=== PATIENT | female | born 1940 | race Caucasian/White ===

== ENCOUNTER 2019-07-12 10:05 | Inpatient (IN) | payer MEDICARE, OTHER ==
[~2019-07-12] VITALS: Ht 170.2 cm; Wt 53.6 kg
[~2019-07-12 10:05] MED LIST: CIPRO500 MG PO; HYDROCODONE-APA1 TA3 PO
--- NOTE | 2019-07-12 11:00 | NUR ---
NEW ADMIT TO DOCTOR LEAVITT ON GROUP HOME FROM DR ROCHA'S OFFICE FOR INCREASED CONFUSION, ANXIETY, AGGRESSION, AND NOT EATING. UPON ARRIVAL TO GROUP HOME, PATIENT WAS CALM AND COOPERATIVE WITH ADMISSION ASSESSMENTS. CONSENTS TO TREAT RECEIVED FROM SUSAN EASON, SPOUSE AND GUARDIAN. GUARDIANSHIP PAPERWORK RECEIVED. PATIENT IS A FULL CODE. CODE WORD PROVIDED TO FAMILY. PT HAS VERY SHORT TERM MEMORY. PT VISITING WITH OTHER FEMALE PATIENTS AT THIS TIME.
[2019-07-12] MEDS ORDERED: SEROQUEL50 MG PO (11:27)
[2019-07-12] MEDS ORDERED: ZOLOFT25 MG PO (11:28)
[2019-07-12] MEDS ORDERED: ATIVAN1 MG PO (11:29)
[2019-07-12 13:37] VITALS: BP 133/55; BMI 19.4
[2019-07-12 13:40] LABS: BASOPHILS 0.3 % (0-2); EOSINOPHILS 0.5 % (0-7); HEMATOCRIT 39.6 % (36.0-48.0); HEMOGLOBIN 12.8 g/dL (12-16); LYMPHOCYTES 38.7 % (15-50); MCHC 32.3 g/dL (31.0-37.0); MCV 89.6 fL (80.0-100.0); MONOCYTES 6.3 % (2-11); NEUTROPHILS 54.2 % (40-80); PLATELET COUNT 268 10x3/uL (130-400); RBC 4.42 10x6/uL (4.00-5.40); RDW 13.2 % (11.5-14.5); WBC 5.9 10x3/uL (4.8-10.8)
[2019-07-12 14:08] LABS: ALBUMIN 3.6 g/dL (3.4-5.0); ALKALINE PHOSPHATASE 115 U/L (30-120); ALT (SGPT) 19 U/L (10-68); CALC OSMOLALITY 288 mosm/kg (275-300); CALCIUM 8.6 mg/dL (8.5-10.1); CHLORIDE - SERUM 106 mmol/L (98-107); CHOL - HDL RATIO 2.7 ratio (2.3-4.1); CHOLESTEROL, TOTAL 205 mg/dL (0-200); CREATININE - SERUM 0.7 mg/dL (0.6-1.3); GLUCOSE 83 mg/dL (74-106); HDL CHOLESTEROL 77 mg/dL (32-96); LDL CHOLESTEROL 115 mg/dL (0-100); LDL-HDL RATIO 1.5 ratio (1.5-3.5); POTASSIUM - SERUM 3.6 mmol/L (3.5-5.1); PROTEIN - SERUM 6.7 g/dL (6.4-8.2); SODIUM 145 mmol/L (136-145); THYROID STIMULATING HORMONE 0.74 uIU/mL (0.36-3.74); TRIGLYCERIDE 65 mg/dL (30-200); UREA NITROGEN 15 mg/dL (7-18); eGFR NON AFRICAN AMERICAN 86 mL/min (90-120)
--- NOTE | 2019-07-12 14:59 | NUR ---
PATIENT VERY ANXIOUS. EXIT SEEKING. BANGING ON DOORS TO GET OUT. LOOKING FOR . UNABLE TO REDIRECT AND BECOMES AGITATED WITH REDIRECTION. HIT NURSE. PRN ATIVAN 0.5 MG PO GIVEN FOR INCREASING ANXIETY.
--- NOTE | 2019-07-12 21:02 | NUR ---
B.) PT IS ALERT AND ORIENTED TO SELF ONLY. SHE IS VERY CONFUSED ABOUT WHERE SHE IS. SHE IS VERY LABILE AND CONSTANTLY TAKING THINGS FROM HER PEERS. SHE IS INTRUSIVE WITH STAFF AND NEEDY. SHE MISSES HER . I.) PROVIDED PM MEDICATION PRESCRIBED. REDIRECT OFTEN. R.) COMPLIANT WITH ALL MEDICATIONS. DIFFICULT TO REDIRECT. P.) WILL CONTINUE TO MONITOR.
[2019-07-12 23:25] VITALS: BP 140/65
[2019-07-13 06:09] LABS: RAPID PLASMA REAGIN Non Reactive (Non Reactive)
[2019-07-13 10:56] VITALS: BP 131/45
[2019-07-13 11:50] VITALS: Ht 170.2 cm; Wt 53.6 kg
--- NOTE | 2019-07-13 14:50 | NUR ---
PATIENT WAS IN DINING AREA WITH OTHER PEERS AND [employer] UTILITY WORKER. PT WAS AGITATING A PT. UNABLE TO REDIRECT THIS PT. SHE BECAME COMBATIVE WITH BELEM GAGNON. SHE ATTEMPTED MULTIPLE TIMES TO REDIRECT HER FROM OTHER PEER. SHE FINALLY REDIRECTED HER INTO OTHER GROUP ROOM. PT WAS VERY AGITATED, DIGGING FINGERNAILS INTO STAFF AND ATTEMPTED TO PULL STAFF HAIR. 3X STAFF ATTEMPTED TO REDIRECT HER. UNABLE TO DO SO AT THE TIME. PT BEGIN TO YELL "HELP HELP" STAFF ASSISTED INTO A CHAIR TO ATTEMPT TO CALM PT UNABLE TO DO SO. ATIVAN 0.5 MG IM AND HALDOL 2 MG IM GIVEN PER DR. LEAVITT ORDER. WILL REASSESS FOR EFFECTIVENESS. WILL CONT TO MONITOR FOR S/SX.
--- NOTE | 2019-07-13 15:35 | NUR ---
PATIENT WAS STILL YELLING, SCRATCHING AT STAFF AND AGITATED. UNABLE TO REDIRECT AT THIS TIME. PT IS CONFUSED AND COMBATIVE. WILL REASSESS AND CONT PLAN OF CARE.
--- NOTE | 2019-07-13 16:24 | PSY ---
PATIENT NAME:ALMA LAFLEUR MEDICAL RECORD: [id number] : 42 LOCATION:[facility] ADMISSION DATE: 07/12/19 ACCOUNT: [id number] PSYCHIATRIC EVALUATION DATE OF EVALUATION: 07/13/19 IDENTIFYING DATA: The patient is 79 years old and she is admitted to the hospital on a voluntary basis. CHIEF COMPLAINT: Confusion and agitation. HISTORY OF PRESENT ILLNESS: The patient is brought to the hospital by her and son. Apparently, she is living at home with the where she has been combative, agitated, and aggressive. Various attempts to manage her on an outpatient basis pharmacologically have failed. She denies that she would seek to harm herself or others, but it is very clear she is confused. She is only oriented to person and partially to time and situation. PAST MEDICAL HISTORY: None by her account. PAST PSYCHIATRIC HISTORY: None by her account. FAMILY HISTORY: Unknown. ALLERGIES: No known drug allergies. CURRENT MEDICATIONS: Include Zoloft, Seroquel. SOCIAL HISTORY: The patient is . She has adult children. She denies drug and alcohol use. MENTAL STATUS EXAMINATION: The patient is awake, alert and oriented to person and place, but not really to time or situation. Her mood is euthymic. Her affect is a little anxious. Thought processes are disorganized and she is concrete to abstraction and her concentration is impaired. She denies that she would seek to harm herself or others as well as psychotic symptoms. ASSESSMENT: AXIS I: Major neurocognitive disorder of the Alzheimer's type. AXIS II: None. AXIS III: None. AXIS IV: Moderate. AXIS V: Global assessment of functioning is 30. PLAN: At this time, the patient is admitted to the hospital for evaluation secondary to aggressive behavior. She will be monitored for clinical changes associated with the memory enhancing and mood stabilizing medicines she will be treated with. Her long-term prognosis is guarded. TRANSINT:[id number] Voice Confirmation ID: [id number] DOCUMENT ID: [id number] VI LEAVITT MD at 1624 CC: [id number] DICTATION DATE: 07/13/19 1158 MANUFACTURING ENGINEER CHIEF: 07/13/19 1302 ADM IN [place] [id number] [place] [address]
--- NOTE | 2019-07-13 18:28 | NUR ---
PATIENT DAUGHTER CALLED TO CHECK ON HER MOTHER SINCE HER DAD HAD RECIEVED A CALL FROM [facility] STATES SHE WAS NOT HAVING A GOOD DAY. SHE WANTED TO KNOW HOW HER CURRENT BEHAVIOR WAS. NURSE EXPLAINED THAT SEVERAL STAFF MEMBERS ATTEMPTED TO REDIRECT HER BEHAVIOR AND SHE BECAME COMBATIVE WITH THE STAFF. NURSE ADMINISTERED MEDICATION TO ASSIST WITH THE AGGRESSIVE BEHAVIORS. DAUGHTER ASKED WHAT CAUSED THE INCIDENT. SHE STATED I UNDERSTAND FROM HOME SOMETIMES IT DOES NOT TAKE MUCH FOR HER TO GET UPSET. NURSE EXPLAINED THAT SHE WAS ATTEMPTING TO TOUCH ANOTHER PT AND HE DOES NOT LIKE TO BE TOUCHED AND SHE WAS FOCUSING ON HIM ALL DAY. STAFF WAS UNABLE TO REDIRECT PT FROM OTHER PEER. AND SHE BECAME UPSET WHEN STAFF ATTEMPTED TO REMOVE HER FROM THE SITUATION. SHE VERBALIZIED UNDERSTANDING. NURSE EXPLAINED SHE WOULD NOTIFY THEM BEFORE VISITATION AGAIN IF SHE WAS HAVING BEHAVIORS. SHE THANKED NURSE AND VERBALIZIED UNDERSTANDING. WILL CONT PLAN OF CARE.
[2019-07-13 19:30] VITALS: BP 129/53
[2019-07-13 20:52] LABS: BILIRUBIN NEGATIVE (NEGATIVE); GLUCOSE NEGATIVE (NEGATIVE); KETONE NEGATIVE (NEGATIVE); NITRITE NEGATIVE (NEGATIVE); UROBILINOGEN NORMAL (NORMAL)
[2019-07-13 20:53] LABS: EPITHELIAL CELLS OCC /hpf (0-5); RED CELLS - URINE 0-5 /hpf (0-5); WHITE CELLS - URINE NSEEN /hpf (NEGATIVE)
--- NOTE | 2019-07-13 21:23 | NUR ---
B)RECEIVED PATIENT SITTING OUTSIDE THE NURSE'S STATION. ALERT AND INTERACTING WITH OTHER PEERS. PLEASANT AND COOPERATIVE. I)ADMINISTER MEDS AND MONITOR COMPLIANCE. REORIENT NEEDED. R)MED COMPLIANT. REORIENTS HOWEVER IS FORGETFUL AND REQUIRES REPEATED ORIENTATION I.E. AFTER TALKING WITH PEERS AT THE NURSES STATION PATIENT ASKED "NOW WHAT DIRECTION DO WE GO IN?" INSTRUCTED PATIENT WHAT HER ROOM NUMBER IS. P)CONTINUE POC AND PROVIDE SAFE ENVIRONMENT.
--- NOTE | 2019-07-13 23:29 | NUR ---
B)RECEIVED SITTING IN A CHAIR AT THE NURSE'S STATION. CONFUSED AND DISORIENTED. KEEPS ASKING WHAT SHE IS SUPPOSE TO DO. INTRUSSSIVE AND TOUCH THINGS THAT DO NOT BELONG TO HER. I)ADMINISTER MEDS AND MONITOR COMPLIANCE. REORIENT NEEDED. R)MED COMPLIANT. POOR REORIENTATION DUE TO IMPAIRED ABILITY TO PROCESS AND RETAIN INFORMATION. P)CONTINUE POC AND PROVIDE SAFE ENVIRONMENT.
--- NOTE | 2019-07-14 07:20 | NUR ---
PATIENT DAUGHTER CALLED AND WANTED AN UPDATE ON HOW SHE WAS DOING. NURSE REPORTED THAT THE PREVIOUS SHIFT DID NOT REPORT ANY BEHAVIORS. SHE SLEPT 9.5 HOURS AND DID NOT HAVE ANY COMBATIVE BEHAVIORS. SHE INQUIRED IF SHE ATE DINNER ON 07/13/2019. THIS NURSE EXPLAINED SHE GAVE PT A ENSURE MEAL SUPPLEMENT AND SHE DRANK IT. IT COUNTS FOR ONE MEAL. SHE VERBALIZIED UNDERSTANDING.
[2019-07-14 09:45] VITALS: BP 130/67
[2019-07-14 20:00] VITALS: BP 125/75
--- NOTE | 2019-07-14 21:02 | NUR ---
B)RECEIVED PATIENT SITTING AT THE NURSE'S STATION LISTENING TO HER PEERS INTERACT. ORIENTED TO SELF ONLY. UNABLE TO FOLLOW VERBAL INSTRUCTIONS. I)ADMINSITER MEDS AND MONITOR COMPLIANCE. REORIENT NEEDED. R)MED COMPLIANT. POOR REORIENTATION DUE TO IMPAIRED ABILITY TO COMPREHEND. PROCESS AND RETAIN INFORMATION. P)CONTINUE POC AND PROVIDE SAFE ENVIRONMENT.
--- NOTE | 2019-07-15 08:19 | NUR ---
The patient is awake, she knows her name, but she has no insight into her situation. She is calm and allowed staff to assist her to take a shower to include her hair being washed without any aggression or outbursts. She ambulates independently. Provide prescribed meds, redirect to appropriate behavior, and ensure that the patient continues to have dignity and privacy. Will monitor medication compliance. Continue POC.
[2019-07-15 08:24] VITALS: BP 106/60
--- NOTE | 2019-07-15 11:26 | PN ---
PATIENT:ALMA LAFLEUR MEDICAL RECORD: [id number] LOCATION:[facility] [place] ADMISSION DATE: 07/12/19 PROGRESS NOTE DATE OF SERVICE: 07/13/2019 SUBJECTIVE: The patient's case was discussed with staff. She has no new complaint. OBJECTIVE: The patient slept reasonably well and she ate reasonably well yesterday. Her aggressive behaviors have improved and that is without much in the way of pharmacologic intervention. I would attribute it to the fact that she is in an environment that is highly structured and there is always staff available to assist or redirect her. ASSESSMENT: Dementia. PLAN: I am going to increase the patient's Zoloft to 50 mg daily. She will be monitored for clinical changes associated with its use. Her long-term prognosis is guarded. TRANSINT:[id number] Voice Confirmation ID: [id number] DOCUMENT ID: [id number] VI LEAVITT MD at 1126 CC: [id number] DICTATION DATE: 07/14/19 0740 FIXTURE DESIGNER: 07/14/19 0807 [facility] IN [facility] [address] [place] [id number]
--- NOTE | 2019-07-15 17:25 | NUR ---
PT DAUGHTER MONY CALLED TO CHECK ON HOW SHE WAS DOING. PASSCODE GIVEN. NURSE GAVE AN UPDATE ON HER CONDITION. SHE WAS PACING BUT REDIRECABLE. SHE HAS NOT HAD ANY AGGRESSION AT THIS TIME. SHE ALSO ASKED WHEN VISITATION HOURS. NURSE GAVE VISITATION HOURS. SHE THANKED ME AND VERBALIZED UNDERSTANDING OF THE HOURS.
--- NOTE | 2019-07-15 17:41 | NUR ---
THIS NURSE ADMINISTERED 1900 ATIVAN 1 MG AT THIS TIME. PT IS GETTING AGITATED WITH REDIRECT. PT IS INTRUSIVE WITH OTHERS, PACING, EXIT SEEKING AND PUSHING STAFF. WILL REASSES.
[2019-07-15 19:31] VITALS: BP 152/56
--- NOTE | 2019-07-15 22:10 | NUR ---
CONTINUES TO WANDER HALLS. VERBALLY AGGRESSIVE WHEN INSTRUCTED IT IS TIME FOR BED. EXIT SEEKING. PRN HALDOL AND ATIVAN IM ADMINSITERED BY Flako SUNG RN.
--- NOTE | 2019-07-15 22:31 | NUR ---
B)RECEIVED PATIENT SITTING IN THE DINING ROOM. RESTLESS AND WANDERS THE HALLWAYS. ORIENTED XO. CAN NOT EVEN TELL YOU HER NAME. TRIES TO BLANKET INSPECTOR BELONGINGS THAT DO NOT BELONG TO HER. DOES NOT FOLLOW VERBAL REDIRECTION. WILL ARGUE AND CURSE WHEN ATEMPTING TO GET HER TO DO SOMETHING. I)ADMINISTER MEDS AND MONITOR COMPLIANCE. REORIENT NEEDED. R)MED COMPLIANT. POOR REORIENTATION DUE TO IMPAIRED ABILITY TO COMPREHEND, PROCESS AND RETAIN INFORMATION. P)CONTINUE POC AND PROVIDE SAFE ENVIRONMENT.
--- NOTE | 2019-07-15 22:41 | NUR ---
STILL WANDERING HALLWAYS. CONFUSED AND DISORIENTED. WILL CONTINUE TO MONITOR.
--- NOTE | 2019-07-16 08:34 | NUR ---
RECEIVED IN HALLWAY OUTSIDE OF NURSES STATION. CALM AND COOPERATIVE WITH CARE AND ASSESSMENT. NO AGGRESSIVE BEHAVIORS THIS MORNING. REDIRECT AND REORIENT NEEDED. EATING BREAKFAST AT THIS TIME. CONTINUE PLAN OF CARE.
--- NOTE | 2019-07-16 11:01 | PN ---
PATIENT:ALMA LAFLEUR MEDICAL RECORD: [id number] LOCATION:[facility] [place] ADMISSION DATE: 07/12/19 PROGRESS NOTE DATE OF SERVICE: 07/15/2019 SUBJECTIVE: The patient's case was discussed. She has no new complaint. OBJECTIVE: The patient is not eating adequately. She has reduced oral intake. She is sleeping an acceptable amount. She has had no combative behaviors today, but I think that is probably related to her being under constant supervision and redirection. ASSESSMENT: Dementia. PLAN: The patient is going to be started on Megace to assist with appetite stimulation. She will be monitored for clinical changes associated with its use. TRANSINT:[id number] Voice Confirmation ID: [id number] DOCUMENT ID: [id number] VI LEAVITT MD at 1101 CC: [id number] DICTATION DATE: 07/15/19 1231 WET CROWN BLOCKING OPERATOR: 07/15/19 1428 ADM IN [place] [id number] [place] [address]
[2019-07-16 11:19] VITALS: BP 123/56
--- NOTE | 2019-07-16 18:59 | NUR ---
RECEIVED BEDROOM. RESTING IN BED WITH EYES OPEN. CALM AND COOPERATIVE WITH CARE AND ASSESSMENT. NO SIGNS OF AGGRESSION. REDIRECT AND REORIENT NEEDED. RESTING IN BED WITH EYES CLOSED. CONTINUE PLAN OF CARE
--- NOTE | 2019-07-16 21:01 | NUR ---
PATIENT OUT OF BED PACING UNIT. GOING INTO PEERS ROOMS. PUSHING CALL BUTTONS. VERY CONFUSED. SCRATCHED STAFF MEMBER DURING REDIRECTING. INCREASING ANXIETY. PRN ATIVAN 0.5 MG IM GIVEN FOR ANXIETY. PRN HALDOL 2 MG IM GIVEN FOR PSYCHOTIC BEHAVIOR. CONTINUE TO MONITOR.
--- NOTE | 2019-07-16 21:53 | NUR ---
CONTINUES TO PACE IN HALLWAYS.
[2019-07-17 08:58] VITALS: BP 110/49
--- NOTE | 2019-07-17 09:41 | NUR ---
RECEIVED IN HALLWAY OUTSIDE OF NURSES STATION. CALM AND COOPERATIVE WITH CARE AND ASSESSMENT. VERY CONFUSED. WANDERING AROUND. NO AGGRESSIVE BEHAVIOR THIS MORNING. REDIRECT AND REORIENT NEEDED. WANDERING AROUND DAYROOM AT THIS TIME. CONTINUE PLAN OF CARE.
--- NOTE | 2019-07-17 10:58 | PN ---
PATIENT:ALMA LAFLEUR MEDICAL RECORD: [id number] LOCATION:[facility] ADMISSION DATE: 07/12/19 PROGRESS NOTE DATE OF SERVICE: 07/16/2019 SUBJECTIVE: The patient's case was discussed with staff. She has no new complaint. OBJECTIVE: The patient has not been significantly agitated or disruptive. She is eating a little better today. She clearly has an advanced dementia and requires almost constant supervision. I am unclear as to whether or not this can be adequately handled at home. TRANSINT:[id number] Voice Confirmation ID: [id number] DOCUMENT ID: [id number] VI LEAVITT MD at 1058 CC: [id number] DICTATION DATE: 07/16/19 1106 BAKER PAINT: 07/16/19 1148 ADM IN [facility] [address] [place] [address]
--- NOTE | 2019-07-17 11:40 | NUR ---
PATIENT FELL IN DAYROOM. NO INJURIES. VS STABLE. DOCTOR NOTIFIED. SPOUSE, DON, NOTIFIED. NEURO CHECKS STARTED. WILL CONTINUE TO MONITOR.
--- NOTE | 2019-07-17 14:00 | NUR ---
PATIENT AGITATED. HITTING AND KICKING STAFF. UNABLE TO REDIRECT. PRN ATIVAN 0.5 MG IM GIVEN FOR INCREASING ANXIETY.
--- NOTE | 2019-07-17 15:00 | NUR ---
PRN EFFECTIVE. PATIENT CALM AND COOPERATIVE.
[2019-07-17 19:55] VITALS: BP 125/65
--- NOTE | 2019-07-17 20:44 | NUR ---
B.) PT IS ALERT AND ORIENTED TO SELF ONLY. SHE IS VERY UNSTEADY ON HER FEET. SHE IS RECEIVED IN THE DAYROOM IN A NAYELY-CHAIR. SHE IS PUNCHING AND KICKING TECH. SHE YELLS OUT FREQUENTLY FOR HER FATHER. I.) PROVIDED PM MEDICATIONS PRESCRIBED. REDIRECT OFTEN. R.) COMPLIANT WITH ALL MEDICATIONS. DIFFICULT TO REDIRECT. P.) WILL CONTINUE TO MONITOR.
[2019-07-18 08:12] VITALS: BP 130/61
--- NOTE | 2019-07-18 08:30 | NUR ---
RECEIVED IN HALLWAY OUTSIDE OF NURSES STATION. CALM AND COOPEATIVE WITH CARE AND ASSESSMENT. VERY CONFUSED. NO AGGRESSIVE BEHAVIOR THIS MORNING. REDIRECT AND REORIENT NEEDED. EATING BREAKFAST AT THIS TIME. CONTINUE PLAN OF CARE.
--- NOTE | 2019-07-18 11:02 | PN ---
PATIENT:ALMA LAFLEUR MEDICAL RECORD: [id number] LOCATION:[facility] [place] ADMISSION DATE: 07/12/19 PROGRESS NOTE DATE OF SERVICE: 07/16/2019 SUBJECTIVE: The patient's case was discussed with staff. She has no new complaint. OBJECTIVE: The patient is in good behavioral control. She has limited insight about her condition. She has been fairly agitated today for reasons that are unclear. ASSESSMENT: Dementia. PLAN: The patient will be treated with Seroquel on a scheduled basis. Hopefully, the Seroquel will help with her level of agitation. She will be monitored for clinical changes associated with its use. TRANSINT:[id number] Voice Confirmation ID: [id number] DOCUMENT ID: [id number] VI LEAVITT MD at 1102 CC: [id number] DICTATION DATE: 07/17/19 1353 PROTOHISTORIAN: 07/18/[address] [facility] [address] [place] [address]
--- NOTE | 2019-07-18 20:56 | NUR ---
RECEIVED IN HALLWAY OUTSIDE OF NURSES STATION. SITTING WITH PEERS SOCIALIZING. CALM AND COOPERATIVE WITH CARE AND ASSESSMENT. NO SIGNS OF AGGRESSION. REDIRECT AND REORIENT NEEDED. IN ROOM GETTING READY FOR BED AT THIS TIME. CONTINUE PLAN OF CARE
[2019-07-18 22:07] VITALS: BP 118/60
--- NOTE | 2019-07-19 01:01 | NUR ---
VERY CONFUSED. PACING THE HALLS. INCREASING ANXIETY. PRN ATIVAN 0.5 MG IM GIVEN FOR ANXIETY. CONTINUE TO MONITOR.
--- NOTE | 2019-07-19 01:59 | NUR ---
CONTINUES TO BE UP IN HALLWAY. VERY CONFUSED. DECREASED ANXIETY.
[2019-07-19 09:00] VITALS: BP 149/68
--- NOTE | 2019-07-19 14:18 | PN ---
PATIENT:ALMA LAFLEUR MEDICAL RECORD: [id number] LOCATION:[facility] [place] ADMISSION DATE: 07/12/19 PROGRESS NOTE DATE OF SERVICE: 07/18/2019 SUBJECTIVE: The patient's case was discussed with staff. She has no new complaint. OBJECTIVE: The patient is calmer since being started on a scheduled dose of Seroquel. She has pretty limited insight about her situation. She is actually only oriented to person today. ASSESSMENT: Dementia. PLAN: Current medicines have been reviewed and will be maintained. Her long-term prognosis is guarded. TRANSINT:[id number] Voice Confirmation ID: [id number] DOCUMENT ID: [id number] VI LEAVITT MD at 1418 CC: [id number] DICTATION DATE: 07/18/19 1243 BRUSH MATERIAL PREPARER: 07/18/192054 ADM IN [facility] [address] [place] [id number]
--- NOTE | 2019-07-19 16:30 | NUR ---
IS CONFUSED AND DISORIENTED.DIFFICULT TO REDIRECT.AMBULATES BUT HAS UNSTABLE GAIT.IS MONITORED CLOSELY TO PREVENT INJURY.IS COMPLIANT WITH MEDS.EXIT SEEKING.RESTLESS.WILL CONTINUE WITH CURRENT PLAN OF CARE,MONITOR FOR SAFETY AND CHANGES.
[2019-07-19 22:02] VITALS: BP 103/74
--- NOTE | 2019-07-19 22:27 | NUR ---
PATIENT IS VERY CONFUSED AND HARD TO REDIRECT AND WHILE TRYING TO REDIRECT SHE BECOMES VERY AGITATED AND SOMETIMES PHYSICALLY COMBATIVE. COMPLIANT WITH MEDS, CRUSHED IN ICE CREAM. WILL FOLLOW POC
--- NOTE | 2019-07-20 09:27 | PN ---
PATIENT:ALMA LAFLEUR MEDICAL RECORD: [id number] LOCATION:[facility] [place] ADMISSION DATE: 07/12/19 PROGRESS NOTE DATE OF SERVICE: 07/19/2019 SUBJECTIVE: The patient's case was discussed with staff. She has no new complaint. OBJECTIVE: The patient is anxious and disorganized. She has pretty limited insight about her situation. She is not sleeping well. ASSESSMENT: Dementia. PLAN: The patient is going to be given trazodone at a dose of 100 mg at bedtime to assist with sleep consolidation. She will be monitored for clinical changes associated with its use. TRANSINT:[id number] Voice Confirmation ID: [id number] DOCUMENT ID: [id number] VI LEAVITT MD at 0927 CC: [id number] DICTATION DATE: 07/19/19 1538 SEMICONDUCTOR WAFER INSPECTOR: 07/19/19 1806 ADM IN [facility] [address] [place] [address]
--- NOTE | 2019-07-20 10:23 | NUR ---
The patient is awake and alert, she is pleasant. She has poor insight into her situation. She has not shown any aggression today. She ate a little at breakfast. Her called and asked about her and was pleased that she is having a good morning. Provide prescribed meds. Redirect to appropriate behavior. The patient is compliant with meds. Continue POC.
[2019-07-20 10:37] VITALS: BP 122/72
--- NOTE | 2019-07-20 10:57 | NUR ---
Nutrition Follow-up: Diet: Regular PO intake: ~48% average x last 9 meals Last BM: 07/14/19. WT: 119# (07/16/19); Admit WT: 123.8# (07/12/19) Meds noted: megace. No new chem labs to review. Noted -4.8# weight difference. Recommend continue Megace as medically able. Recommend increase in bowel regimen to promote BM regularity and hopefully help with appetite. Recommend continue current diet. Will add Ensure with meal trays. RD following.
[2019-07-20 19:30] VITALS: BP 125/56
--- NOTE | 2019-07-20 23:11 | NUR ---
B)RECEIVED PATIENT WALKING IN THE DINING ROOM. CONFUSED AND DISORIENTED. PT CAN TELL YOU HER FATHER'S NAME BUT CAN NOT TELL YOU HER NAME. WANDERS HALLWAY AND CHECKS THE DOORS. I)ADMINISTER MEDS AND MONITOR COMPLIANCE. REORIENT NEEDED. R)MED COMPLIANT. POOR REORIENTATION DUE TO IMPAIRED ABILITY TO COMPREHEND AND RETAIN INFORMATION. P)CONTINUE POC AND PROVIDE SAFE ENVIRONMENT.
[2019-07-21 09:00] VITALS: BP 105/82
--- NOTE | 2019-07-21 10:30 | NUR ---
The patient is awake and alert, she received a shower this am she tolerated well. She ambulates with staff assist, she is unsteady. She knows her name when it is spoken, but she can not tell you her name. She has not shown any aggression today. She has poor insight into her situation. Provide prescribed meds. The patient is compliant with meds. Continue POC.
--- NOTE | 2019-07-21 13:40 | PN ---
PATIENT:ALMA LAFLEUR MEDICAL RECORD: [id number] LOCATION:[facility] [place] ADMISSION DATE: 07/12/19 PROGRESS NOTE DATE OF SERVICE: 07/20/2019 SUBJECTIVE: The patient's case was discussed with staff. She has no new complaint. OBJECTIVE: The patient is partially oriented. She has been fairly confused. She is still having some agitation, particularly at night. ASSESSMENT: No change in diagnoses. PLAN: The patient was started on trazodone yesterday and Seroquel the day before. I am going to give it another day to become more effective. TRANSINT:[id number] Voice Confirmation ID: [id number] DOCUMENT ID: [id number] VI LEAVITT MD at 1340 CC: [id number] DICTATION DATE: 07/20/19 1019 POWDER COMPOUNDER: 07/20/19 1526 ADM IN [place] [id number] [place] [id number]
--- NOTE | 2019-07-21 13:41 | NUR ---
SW CALLED AND SPOKE TO SPOUSE ABOUT PT'S PROGRESS IN TREATMENT. SW STATED PT SLEPT MORE LAST NIGHT AND IS SOCIALIZING WITH STAFF AND PEERS TODAY. SW STATED SPOUSE, DON, COULD CALL AND SPEAK TO STAFF ON THE UNIT AT ANYTIME. SUSAN VOICED UNDERSTANDING OF DISCUSSION AND WAS APPRECIATIVE OF PHONE CALL.
[2019-07-21 20:00] VITALS: BP 101/68
--- NOTE | 2019-07-21 20:01 | NUR ---
B.) PT IS ALERT AND ORIENTED TO SELF ONLY. SHE IS RECEIVED IN THE HALLWAY SOCIALIZING WITH PEERS. SHE IS ABLE TO MAKE HER NEEDS KNOWN. SHE IS CONFUSED AND ASKING FOR HER . SHE OFTEN WANDERS THE [place]. I.) PROVIDED PM MEDICATIONS PRESCRIBED. REDIRECT OFTEN. R.) COMPLIANT WITH ALL MEDICATIONS. DIFFICULT TO REDIRECT. P.) WILL CONTINUE TO MONITOR.
--- NOTE | 2019-07-21 22:30 | NUR ---
PT IS COMBATIVE WITH STAFF. SHE IS DIFFICULT TO REDIRECT. CONSTANTLY YELLING FOR HELP. ADMINISITERED 0.5MG ATIVAN AND 2 MG HALDOL. WILL CONTINUE TO MONITOR.
--- NOTE | 2019-07-21 23:10 | NUR ---
PT RESTING CALMLY IN GERICHAIR IN HALLWAY WITH EYES OPEN. WILL CONTINUE TO MONITOR.
[2019-07-22 08:09] VITALS: BP 138/59
--- NOTE | 2019-07-22 13:16 | NUR ---
The patient was very sleepy early this am, but she is awakening and trying to get up. She is unsteady this am and her steps are very small like she is sticking to the floor. She does not understand redirection or simple commands. Provide prescribed meds. The patient is compliant with meds. Continue POC.
[2019-07-22 21:17] VITALS: BP 113/51
--- NOTE | 2019-07-23 00:05 | NUR ---
B.) PT IS ALERT AND ORIENTED TO SELF ONLY. SHE HAS POOR INSIGHT INTO HER SITUATION. SHE IS VERY CONFUSED AND UNSTEADY ON HER FEET. SHE IS RECEIVED IN THE HALLWAY IN A NAYELY-CHAIR. SLIGHTLY AGGITATED WHEN DIRECTED TO HER ROOM. I.) REDIRECT NEEDED. PROVIDED PM MEDICATIONS. R.) EASY TO REDIRECT. COMPLIANT WITH ALL MEDICATIONS. P.) WILL CONTINUE TO MONITOR.
[2019-07-23 09:07] VITALS: BP 104/47
--- NOTE | 2019-07-23 11:22 | NUR ---
CONFUSED AND DISORIENTED,ORIENTED TO SELF ONLY.POOR RESPONSE TO DIRECTIONS.APPETITE HAS IMPROVED,TAKES MEGACE FOR APPETITE.STAFF HAS TO GET HER STARTED EATING AND THEN SHE WILL FEED HERSELF.WILL CONTINUE WITH CURRENT PLAN OF CARE,MONITOR FOR CHANGES AND SAFETY.
[2019-07-23 20:00] VITALS: BP 114/55
[2019-07-24 00:07] VITALS: BP 114/55
--- NOTE | 2019-07-24 00:21 | NUR ---
B.) PT IS ALERT AND ORIENTED TO SELF ONLY. SHE IS PLEASANT WITH STAFF AND IS AMBULATING BETTER WITHOUT ASSIST THIS SHIFT. SHE IS HAVING A HARD TIME FALLING ASLEEP. SHE IS COOPERATIVE WITH STAFF. I.) PROVIDED PM MEDICATIONS PRESCRIBED. REDIRECT NEEDED. R.) COMPLIANT WITH ALL MEDICATIONS. EASY TO REDIRECT. P.) WILL CONTINUE TO MONITOR
[2019-07-24 08:36] VITALS: BP 134/60
--- NOTE | 2019-07-24 08:45 | NUR ---
RECEIVED IN HALLWAY OUTSIDE OF NURSES STATION. CALM AND COOPERATIVE WITH CARE AND ASSESSMENT. NO AGGRESSIVE BEHAVIOR THIS MORNING. NO EXIT SEEKING. REDIRECT AND REORIENT NEEDED. EATING BREAKFAST AT THIS TIME. CONTINUE PLAN OF CARE.
--- NOTE | 2019-07-24 13:55 | PN ---
PATIENT:ALMA LAFLEUR MEDICAL RECORD: [id number] LOCATION:[facility] [place] ADMISSION DATE: 07/12/19 PROGRESS NOTE DATE OF SERVICE: 07/23/2019 SUBJECTIVE: The patient's case was reviewed with staff. The patient has no new complaints. She appears to be tolerating her medications and has shown a decrease in anxiety today. OBJECTIVE: The patient is partially oriented to person. Her general appearance is appropriate. She is alert. Her speech is soft, low tone, and low volume. Her associations are loose. Her eye contact is good. Her judgment and insight are impaired. Thought and concentration, she is distracted. Her mood is slightly anxious and depressed. Her affect is flat and narrow in range, and she has moderate anxiety, which is decreasing from yesterday. Her judgment and insight are poor, and the patient does not appear to be attending to any visual or auditory hallucinations, and her memory is both poor for remote and recent events. ASSESSMENT: No change in diagnosis. PLAN: We will continue to monitor her medications for the effectiveness. We will continue to monitor her for mood and we will keep her safe. Dictated By: Sofia Viveros APN I have interviewed/examined the above patient and agree with these documented findings. TRANSINT:[id number] Voice Confirmation ID: [id number] DOCUMENT ID: [id number] VI LEAVITT MD at 1355 CC: [id number] DICTATION DATE: 07/23/19 190 BOILERMAKER APPRENTICE: 07/24/19 0702 ADM IN [facility] [address] [place] [address]
--- NOTE | 2019-07-24 16:22 | PN ---
PATIENT:ALMA LAFLEUR MEDICAL RECORD: [id number] LOCATION:[facility] [place] ADMISSION DATE: 07/12/19 PROGRESS NOTE DATE OF SERVICE: 07/22/2019 SUBJECTIVE: The patient has no new complaint. She appears to be tolerating her medications. OBJECTIVE: The patient is partially oriented. Her voice is soft, low tone, low volume. Associations are loose. Her eye contact is fair. Her judgment and insight are impaired. Her thought and concentration is circumstantial thoughts. Her mood is depressed, easily agitated. Affect is flat and restricted. No tremors noted. Her anxiety is mild to moderate and her memory is poor for both recent and remote events. There appears to be no signs of attending to visual or auditory hallucinations and her judgment and insight are poor. ASSESSMENT: No change in diagnosis. PLAN: Will be continued to monitor her medications for the effectiveness of those medications and to monitor her anxiety. Dictated By: Sofia Viveros APN I have interviewed/examined the above patient and agree with these documented findings. TRANSINT:[id number] Voice Confirmation ID: [id number] DOCUMENT ID: [id number] VI LEAVITT MD at 1622 CC: [id number] DICTATION DATE: 07/22/19 1602 THREE DIMENSIONAL MAP MODELER: 07/23/19 0313 [facility] [place] [address]
--- NOTE | 2019-07-24 16:22 | PN ---
PATIENT:ALMA LAFLEUR MEDICAL RECORD: [id number] LOCATION:[facility] ADMISSION DATE: 07/12/19 PROGRESS NOTE DATE OF SERVICE: 07/21/2019 SUBJECTIVE: The patient's case was reviewed with staff. The patient has no new complaints. She states that she slept okay and appears to be tolerating her medications. OBJECTIVE: The patient is partially oriented. Her thought process is not connected. Her insight and judgment are poor. She has short-term and long-term memory deficits. The patient ate breakfast 100%, but has eaten less for lunch and dinner. She slept 5.5 hours. She was compliant with medications. No p.r.n. medications were administered. The patient's gait has a decreased shuffle and the patient is making "more sense." The plan is to continue with her current medications and to monitor. The patient's daughter is in town and is looking at alternative placement for patient. We will continue to monitor her medications and effectiveness of those medications and to monitor her anxiety. Dictated By: Sofia Viveros APN I have interviewed/examined the above patient and agree with these documented findings. TRANSINT:[id number] Voice Confirmation ID: [id number] DOCUMENT ID: [id number] VI LEAVITT MD at 1622 CC: [id number] DICTATION DATE: 07/21/191814 ICE CREAM MAKER: 07/22/19 0305 ADM IN [place] [address] [place] [address]
[2019-07-24 20:08] VITALS: BP 113/52
--- NOTE | 2019-07-24 23:26 | NUR ---
PATIENT WANDERING. INTRUSSIVE. ARGUMENTATIVE AND THREATENING TO SPIT ON STAFF AND TRYING TO HIT. ATIVAN 0.5MG IM ADMINISTERED PER ORDERS.
--- NOTE | 2019-07-25 00:38 | NUR ---
CONTINUES TO BE RESTLESS. NOT FOLLOWING VERBAL INSTRUCTIONS. CONTINUES TO CURSE AT STAFF. TRIES TO GET UP. TELLING STAFF TO GET OUT OF HER HOUSE. HALDOL 2MG IM ADMINISTERED PER ORDERS.
--- NOTE | 2019-07-25 01:31 | NUR ---
B)RECEIVED PATIENT SITTING IN THE DAYROOM. CONFUSED AND DISORIENTED. DOES NOT FOLLOW TOPIC OF CONVERSATION OR WILL TELL STAFF "IT'S NONE OF YOUR BUSINESS." INTRUSSIVE AND WANDERS IN OTHER PATIENT'S ROOM. I)ADMINSITER MEDS AND MONITOR COMPLIANCE. REDIRECT FOR WANDERING IN OTHER PATIENT'S ROOM. R)MED COMPLIANT. POOR REDIRECTION DUE TO IMPAIRED ABILITY TO COMPREHEND, PROCESS AND RETAIN INFORMATION. P)CONTINUE POC AND PROVIDE SAFE ENVIRONMENT.
--- NOTE | 2019-07-25 09:21 | NUR ---
RECEIVED IN HALLWAY OUTSIDE OF NURSES STATION. CALM AND COOPERATIVE WITH CARE AND ASSESSMENT. VERY CONFUSED. NO AGGRESSIVE BEHAVIORS. REDIRECT AND REORIENT NEEDED. EATING BREAKFAST AT THIS TIME. CONTINUE PLAN OF CARE.
[2019-07-25 10:52] VITALS: BP 135/56
--- NOTE | 2019-07-25 11:47 | PN ---
PATIENT:ALMA LAFLEUR MEDICAL RECORD: [id number] LOCATION:[facility] [place] ADMISSION DATE: 07/12/19 PROGRESS NOTE DATE OF SERVICE: 07/24/2019 SUBJECTIVE: The patient's case was discussed with staff. She has no new complaint. OBJECTIVE: The patient denies intent to harm herself or others. She is generally tolerating her medicines well. She has been compliant with treatment, but is not sleeping well at all. She is not complaining about this, but she simply is not sleeping adequately. ASSESSMENT: Dementia. PLAN: The patient aggression and agitation have improved. I am going to consolidate her Seroquel to a bedtime dose to assist with sleep consolidation. TRANSINT:[id number] Voice Confirmation ID: [id number] DOCUMENT ID: [id number] VI LEAVITT MD at 1147 CC: [id number] DICTATION DATE: 07/24/19 1701 PRESCHOOL TEACHER AIDE: 07/25/19 0042 ADM IN [place] [address] [place] [address]
--- NOTE | 2019-07-25 21:53 | NUR ---
B.) PT IS ALERT AND ORIENTED TO SELF ONLY. SHE HAS POOR INSIGHT INTO HER SITUATION. SHE IS ABLE TO AMBULATE. SHE IS OBSERVED DANCING IN THE [place] WITH STAFF. SHE IS PLEASANT AND COOPERATIVE WITH STAFF. I.) PROVIDED PM MEDICATIONS. REDIRECT OFTEN. R.) COMPLIANT WITH ALL MEDICATIONS. EASY TO REDIRECT. P.) WILL CONTINUE TO MONITOR.
[2019-07-25 22:36] VITALS: BP 126/62
[2019-07-26 10:33] VITALS: BP 130/56
--- NOTE | 2019-07-26 12:34 | NUR ---
RECEIVED IN HALLWAY OUTSIDE OF NURSES STATION. CALM AND COOPERATIVE WITH CARE AND ASSESSMENT. NO AGGRESSIVE BEHAVIORS. LESS ANXIOUS. REDIRECT AND REORIENT NEEDED. EATING LUNCH AT THIS TIME. CONTINUE PLAN OF CARE.
--- NOTE | 2019-07-26 15:31 | PN ---
PATIENT:ALMA LAFLEUR MEDICAL RECORD: [id number] LOCATION:[facility] [place] ADMISSION DATE: 07/12/19 PROGRESS NOTE DATE OF SERVICE: 07/25/2019 SUBJECTIVE: The patient's case was discussed with staff. She has no new complaint. OBJECTIVE: The patient did not sleep well last night and she required p.r.n. medication twice because of her anxiety and agitation. She is only partially oriented. I know her family is looking into whether or not she can go to assisted living or perhaps home with some caregivers. ASSESSMENT: Dementia. PLAN: I am going to maintain the patient on current medications with the exception of the Klonopin that I am going to increase to a full mg daily. I do not think the medicine she is taking has had an opportunity to be effective. Anxiety seems to be her overwhelming issue. TRANSINT:[id number] Voice Confirmation ID: [id number] DOCUMENT ID: [id number] VI LEAVITT MD at 1531 CC: [id number] DICTATION DATE: 07/25/19 1418 MANAGER MARKET INTELLIGENCE: 07/26/19 0413 ADM IN [facility] [address] [place] [address]
--- NOTE | 2019-07-26 20:05 | NUR ---
PT IS WALKING INTO OTHER PATIENTS ROOM AND REFUSING TO LEAVE. SHE IS OBSERVED TAKING THE STAFF PAPERWORK AND REFUSING TO GIVE IT BACK. SHE GOT AGGRESSIVE WITH STAFF AND ATTEMPTING TO PUNCH STAFF. PRN 0.5 MG ATIVAN AND 2 MG HALDOL IM. WILL CONTINUE TO MONITOR.
--- NOTE | 2019-07-26 20:50 | NUR ---
PT RESTING CALMLY IN BED WITH EYES CLOSED. WILL CONTINUE TO MONITOR.
[2019-07-26 21:00] VITALS: BP 159/66
--- NOTE | 2019-07-27 08:50 | NUR ---
RECEIVED IN HALLWAY OUTSIDE OF NURSES STATION. CALM AND COOPERATIVE WITH CARE AND ASSESSMENT. NO AGGRESSIVE BEHAVIORS. PLEASANTLY CONFUSED. MORE SOCIALABLE TODAY. REDIRECT AND REORIENT NEEDED. EATING BREAKFAST AT THIS TIME. CONTINUE PLAN OF CARE.
--- NOTE | 2019-07-27 10:43 | NUR ---
Nutrition Follow-up: Diet: Regular + Ensure TID PO intake: ~51% average x last 9 meals Last BM: 07/22/19 x 2. WT: 119# (07/23/19); Admit WT: 123.8# (07/12/19) Meds noted: megace (started 07/16/19). No new labs. Noted wt loss of -4.8#. Recommend increase in bowel regimen to promote BM regularity and hopefully help increase appetite. Recommend continue current diet and oral nutrition supplement. Encourage PO intake. RD following.
--- NOTE | 2019-07-27 16:47 | PN ---
PATIENT:ALMA LAFLEUR MEDICAL RECORD: [id number] LOCATION:[facility] [place] ADMISSION DATE: 07/12/19 PROGRESS NOTE DATE OF SERVICE: 07/26/2019 SUBJECTIVE: The patient's case was discussed with staff. She has no new complaint. OBJECTIVE: The patient slept better last night. In fact she slept for 8-1/2 hours. I am encouraged by this. She is not showing evidence of excessive sedation today. ASSESSMENT: Dementia. PLAN: Current medicines have been reviewed and will be maintained. Long-term prognosis is guarded. TRANSINT:[id number] Voice Confirmation ID: [id number] DOCUMENT ID: [id number] VI LEAVITT MD at 1647 CC: [id number] DICTATION DATE: 07/26/19 1544 DRAMA TEACHER: 07/26/19 2112 ADM IN [facility] [address] [place] [id number]
[2019-07-27 18:22] VITALS: BP 114/58
[2019-07-27 20:00] VITALS: BP 112/47
--- NOTE | 2019-07-27 20:54 | NUR ---
B.) PT IS ALERT AND ORIENTED TO SELF ONLY. SHE HAS POOR INSIGHT INTO HER SITUATION. SHE IS ABLE TO AMBULATE WITHOUT ASSIST AND MAKE HER NEEDS KNOWN. SHE IS CALM AND COOPERATIVE WITH STAFF. I.) PROVIDED PM MEDICATIONS PRESCRIBED. REDIRECT OFTEN. R.) COMPLIANT WITH ALL MEDICATIONS. EASY TO REDIRECT. P.) WILL CONTINUE TO MONITOR.
--- NOTE | 2019-07-28 07:20 | NUR ---
REC'D PT SITTING IN BED AT THIS TIME. NO ACUTE DISTRESS NOTED. NO BEHAVIORS NOTED FROM PREVIOUS SHIFT. PT IS CONFUSED, ORIENTED TO SELF ONLY. REDIRECT AND REORIENTED NEEDED. WANDERS AT TIMES. WILL CONT PLAN OF CARE.
[2019-07-28 10:32] VITALS: BP 120/58
[2019-07-28 20:00] VITALS: BP 106/38
--- NOTE | 2019-07-28 21:52 | NUR ---
B)RECEIVED PATIENT SITTING IN A CHAIR. RESTLESS. CONFUSED AND DISORIENTED. SEXUALLY INAPPROPRIATE AT TIMES IE RACHED TO KISS A MALE RESIDENT. ARGUMENTATIVE AND HAS DIFFICULTY FOLLOWING VERBAL INSTRUCTIONS. I)ADMINISTER MEDS AND MONITOR COMPLIANCE. REORIENT NEEDED AND REDIRECT FOR INAPPROPRIATE BEHAVIOR. R)MED COMPLIANT. POOR REORIENTATION DUE TO IMPAIRED ABILITY TO COMPREHEND, PROCESS AND RETAIN INFORMATION. PT BECOMES ANGRY WITH REDIRECTION FOR INAPPROPRIATE BEHAVIOR AND WILL TURN AROUND AND WALK AWAY. P)CONTINUE POC AND PROVIDE SAFE ENVIRONMENT.
[2019-07-29 10:30] VITALS: BP 120/48
[2019-07-29 20:00] VITALS: BP 122/50
--- NOTE | 2019-07-29 21:45 | NUR ---
PT RESTLESS AND PICKING AT CLOTHES. TRYING TO GET OUT OF CHAIR UNASSISTED. PRN HALDOL AND ATIVAN IM ADMINISTERED PER ORDERS.
--- NOTE | 2019-07-30 01:08 | NUR ---
B)RECEIVED SITTING IN THE DAYROOM. CONFUSED AND DISORIENTED. DIFFICULTY FOLLOWING VERBAL INSTRUCTIONS DUE TO IMPAIRED ABILITY TO COMPREHEND AND PROCES INFORMATION. I)ADMINISTER MEDS AND MONITOR COMPLIANCE. REORIENT NEEDED. R)MED COMPLIANT. POOR REORIENTATION DUE TO IMPAIRED ABILITY TO COMPREHEND, PROCESS AND RETAIN INFORMATION. UNABLE TO SEPARATE REALITY FROM FANTANSY. P)CONTINUE POC AND PROVIDE SAFE ENVIRONMENT.
--- NOTE | 2019-07-30 07:45 | NUR ---
REC'D PT IN [place]-CHAIR WITH EYES CLOSED. PT IS SEDATED AT THIS TIME. PT HAD BEHAVIORS NOTED ON PREVIOUS SHIFT WITH A PRN ADMINISTERED. PT TENDS TO WANDER IS CONFUSED AND ORIENTED TO SELF ONLY. REDIRECT AND REORIENT NEEDED. COMPLIANT WITH MEDS, VITALS AND ASSESSMENTS. CHAIR ALARM IN PLACE AND ACTIVE. WILL CONT PLAN OF CARE.
[2019-07-30 09:36] VITALS: BP 133/55
--- NOTE | 2019-07-30 14:20 | NUR ---
SPOKE WITH PT THIS SHIFT. PASSCODE GIVEN. PT INQUIRED ABOUT HOW HER NIGHT WENT AND HOW SHE DID. NURSE EXPLAINED SHE DID NOT HAVE THE BEST NIGHT AND WAS GIVEN A PRN TO HELP HER CALM DOWN. HE THOUGHT WAS DOING BETTER. NURSE EXPLAINED SHE WAS UPSET WHEN STAFF HER AND A MALE PT WHEN SHE ATTEMPTED TO KISS HIM. HE VERBALIZIED UNDERSTANDING.
[2019-07-30 20:00] VITALS: BP 99/61
--- NOTE | 2019-07-30 23:34 | NUR ---
RECEIVED IN HALLWAY SITTING OUTSIDE OF NURSES STATION. CALM AND COOPERATIVE WITH CARE AND ASSESSMENT. NO SIGNS OF AGGRESSION. REDIRECT AND REORIENT NEEDED. RESTING IN BED WITH EYES CLOSED. CONTINUE PLAN OF CARE
--- NOTE | 2019-07-31 09:20 | NUR ---
RECEIVED IN HALLWAY OUTSIDE OF NURSES STATION. CALM AND COOPERATIVE WITH CARE AND ASSESSMENT. NO AGGRESSIVE BEHAVIORS. PLEASANTLY CONFUSED. REDIRECT AND REORIENT NEEDED. EATING BREAKFAST AT THIS TIME. CONTINUE PLAN OF CARE.
[2019-07-31 10:55] VITALS: BP 106/48
--- NOTE | 2019-07-31 13:37 | PN ---
PATIENT:ALMA LAFLEUR MEDICAL RECORD: [id number] LOCATION:[facility] [place] ADMISSION DATE: 07/12/19 PROGRESS NOTE DATE OF SERVICE: 07/27/2019 SUBJECTIVE: The patient's case was discussed with staff. She has no new complaint. OBJECTIVE: The patient received p.r.n. Haldol and Ativan last night secondary to some aggression and combativeness. She is not sedated today. She does not have any recollection of the event. She is calm today. ASSESSMENT: Dementia. PLAN: I think the scheduled medicines the patient is on are reasonable and do not think they have had a full opportunity to become effective. Based on this, I have reviewed the medicines and will maintain them as they are today and we will monitor changes. TRANSINT:[id number] Voice Confirmation ID: [id number] DOCUMENT ID: [id number] VI LEAVITT MD at 1337 CC: [id number] DICTATION DATE: 07/27/19 172 NURSERY NURSE: 07/28/19 0216 ADM IN [place] [id number] [place] [address]
--- NOTE | 2019-07-31 13:37 | PN ---
PATIENT:ALMA LAFLEUR MEDICAL RECORD: [id number] LOCATION:[facility] [place] ADMISSION DATE: 07/12/19 PROGRESS NOTE DATE OF SERVICE: 07/30/2019 SUBJECTIVE: The patient's case was discussed with staff. The patient is lying in a reclining chair. She is resting. She appears slightly sedated; however, she only slept 5.5 hours last night. OBJECTIVE: The patient did receive a p.r.n. medication last night for agitation and patient appears to be tolerating her medication. Her general appearance is slightly disheveled since the patient is sleeping, difficult to addresses her medical status exam. ASSESSMENT: No changes in diagnosis. PLAN: Did increased her Zoloft to see if that would help with her anxiety in the evening and her depression. We will continue to monitor her to stabilize her mood and her behaviors and to keep her safe and to plan for discharge to least restrictive environment. Dictated By: Sofia Viveros APN I have interviewed/examined the above patient and agree with these documented findings. TRANSINT:[id number] Voice Confirmation ID: [id number] DOCUMENT ID: [id number] VI LEAVITT MD at 1337 CC: [id number] DICTATION DATE: 07/30/19 1851 STORE TEAM MEMBER: 07/31/19 0604 ADM IN [place] [id number] [place] [id number]
--- NOTE | 2019-07-31 13:37 | PN ---
PATIENT:ALMA LAFLEUR MEDICAL RECORD: [id number] LOCATION:[facility] [place] ADMISSION DATE: 07/12/19 PROGRESS NOTE DATE OF SERVICE: 07/29/2019 DATE OF SERVICE: 07/29/2019 SUBJECTIVE: The patient's case was discussed with staff. The patient is ambulatory and pleasant. She is smiling. She denies any new complaints. OBJECTIVE: The patient did not receive any p.r.n. She has decreased her wandering. The patient does appear to be tolerating her medication; however, the patient only slept 2 hours last night. Her general appearance is appropriate. Her orientation, she is alert and oriented to person, but not to place, time or situation. Her speech is soft, low tone, low volume. Her associations are loose. Her eye contact is fair. Her judgment is impaired. Thought content situation, she is circumstantial with loosening of associations. Her mood is depressed, moderately anxious. Affect is flat and narrow in range. Her anxiety is mild. Memory is poor for remote and recent. She does not appear to be attending to any auditory or visual hallucinations. ASSESSMENT: No change in diagnosis. PLAN: Will be to continue to monitor her scheduled medications and her tolerance to them and to stabilize her mood and continue to monitor for her behaviors and to keep her safe. Dictated By: Sofia Viveros APN I have interviewed/examined the above patient and agree with these documented findings. TRANSINT:[id number] Voice Confirmation ID: [id number] DOCUMENT ID: [id number] VI LEAVITT MD at 1337 CC: [id number] DICTATION DATE: 07/29/19 1121 DIGITAL SERVICE ENGINEER: 07/29/19 1634 ADM IN [facility] [address] [place] [address]
--- NOTE | 2019-07-31 13:37 | PN ---
PATIENT:ALMA LAFLEUR MEDICAL RECORD: [id number] LOCATION:[facility] [place] ADMISSION DATE: 07/12/19 PROGRESS NOTE DATE OF SERVICE: 07/28/2019 SUBJECTIVE: The patient's case was discussed with staff. The patient is sitting in chair. The patient reports that she really wants to go home or go to the races. The patient has no new complaints. OBJECTIVE: The patient did not receive any p.r.n. She has decreased her wandering. However, last night, she did try to smooch another patient on the unit, but was easier to redirect than previous. The patient does appear to be tolerating her medications. She does appear alert to person, disoriented to place, time and situation. Speech is soft, low tone and low volume. Her associations are loose. Her eye contact is fair. Her judgment and insight are impaired. Mood is depressed. Her affect is restricted. Her anxiety is mild. Her memory is poor for remote and recent events. The patient does not appear to be attending to either visual or auditory hallucinations. Her judgment and insight are poor. Impulsivity is moderate to high as the patient has not had signs of aggression today. ASSESSMENT: No change in diagnosis. PLAN: Continue to monitor her scheduled medications at her tolerance to them, to stabilize her mood and to continue to monitor for her behavior and her mood to help keep her safe. Dictated By: Sofia Viveros APN I have interviewed/examined the above patient and agree with these documented findings. TRANSINT:[id number] Voice Confirmation ID: [id number] DOCUMENT ID: [id number] VI LEAVITT MD at 1337 CC: [id number] DICTATION DATE: 07/28/19 1757 SVP OF DIGITAL: 07/29/19 0006 ADM IN [facility] [address] [place] [address]
[2019-07-31] MEDS ORDERED: DESERYL PO (16:41)
[2019-07-31] MEDS ORDERED: SEROQUEL25 MG PO (16:41)
[2019-07-31] MEDS ORDERED: ZOLOFT50 MG PO (16:41)
[2019-07-31] MEDS ORDERED: DONEPEZIL HCL5 MG PO (16:41)
[2019-07-31] MEDS ORDERED: VITAMIN B-121000 MCG PO (16:42)
[2019-07-31] MEDS ORDERED: VITAMIN D PO (16:42)
[2019-07-31] MEDS ORDERED: Megace ES [CHEMO] PO (16:42)
[2019-07-31] MEDS ORDERED: KLONOPIN0.5 MG PO (16:42)
[2019-07-31 19:48] VITALS: BP 109/43
--- NOTE | 2019-07-31 23:27 | NUR ---
RECEIVED IN HALLWAY. STANDING AT NURSES STATION WITH A PEER SOCIALIZING. CONFUSED. CALM AND COOPERATIVE WITH CARE AND ASSESSMENT. SLOW TO REDIRECT AT TIMES. NO SIGNS OF AGGRESSION. REDIRECT AND REORIENT. RESTING IN BED WITH EYES CLOSED. CONTINUE PLAN OF CARE
[2019-08-01 08:56] VITALS: BP 110/53
--- NOTE | 2019-08-01 09:05 | NUR ---
RECEIVED IN HALLWAY OUTSIDE OF NURSES STATION. CALM AND COOPERATIVE WITH CARE AND ASSESSMENT. VERY PLEASANT. NO BEHAVIORS. REDIRECT AND REORIENT NEEDED. EATING BREAKFAST AT THIS TIME. CONTINUE PLAN OF CARE.
--- NOTE | 2019-08-01 11:41 | NUR ---
PERSONAL BELONGINGS RETURNED TO PATIENT. PATIENT DISCHARGED TO THE [facility] IN C/O [facility] PERSONNEL, FAMILY IN ATTENDANCE.
--- NOTE | 2019-08-01 11:47 | NUR ---
PATIENT DISCHARGED TO THE [facility]. TRANSPORTED VIA [facility]. MEDS SENT TO PHARMACY. BELONGINGS SENT WITH PATIENT.
--- NOTE | 2019-08-01 15:11 | PN ---
PATIENT:ALMA LAFLEUR MEDICAL RECORD: [id number] LOCATION:[facility] [place] ADMISSION DATE: 07/12/19 PROGRESS NOTE DATE OF SERVICE: 07/31/2019 SUBJECTIVE: The patient's case was discussed with staff. She has no new complaint. OBJECTIVE: The patient is in good behavioral control. She is eating minimally adequately and she is sleeping well. She has had no aggressive behavior for a number of days now and I think she is at or very near her baseline level of functioning. ASSESSMENT: Dementia. PLAN: The patient will be transitioned out of the hospital tomorrow. As I understand it, she has been accepted to the [facility]. I think that is an appropriate level of care for her at this time; however, it is important to keep in mind that she has a degenerative condition. TRANSINT:[id number] Voice Confirmation ID: [id number] DOCUMENT ID: [id number] VI LEAVITT MD at 1511 CC: [id number] DICTATION DATE: 07/31/19 1640 TIE CUTTER: 08/01/19 0323 DIS IN 08/01/19 [facility] [address] [place] [address]
== END 2019-08-01 11:45 | disposition home or self-care (01) | DRG 57 ==
LOC: D.PSYCH 10:05
PROVIDERS: ADMIT Psychiatry & Neurology Psychiatry; ATTEND Psychiatry & Neurology Psychiatry
DX: G30.9 Alzheimer's disease, unspecified (principal); F02.81 Dementia in other diseases classified elsewhere, unspecified severity, with behavioral disturbance; K21.9 Gastro-esophageal reflux disease without esophagitis; E78.5 Hyperlipidemia, unspecified; E55.9 Vitamin D deficiency, unspecified; F41.9 Anxiety disorder, unspecified; R63.0 Anorexia; E53.8 Deficiency of other specified B group vitamins

== ENCOUNTER 2019-08-14 09:48 | Inpatient (IN) | payer MEDICARE, OTHER ==
[~2019-08-14] VITALS: Ht 170.2 cm; Wt 54.2 kg
[~2019-08-14 09:48] MED LIST changes: +ATIVAN1 MG PO; +DESERYL PO; +DONEPEZIL HCL5 MG PO; +KLONOPIN0.5 MG PO; +Megace ES [CHEMO] PO; +SEROQUEL25 MG PO; +SEROQUEL50 MG PO; +VITAMIN B-121000 MCG PO; +VITAMIN D PO; +ZOLOFT25 MG PO; +ZOLOFT50 MG PO
--- NOTE | 2019-08-14 13:00 | NUR ---
NEW ADMIT TO DOCTOR LEAVITT ON RETIREMENT FROM THE [facility] FOR ALTERED MENTAL STATUS. AT THE [facility], PATIENT WAS RESTLESS, EXIT SEEKING, WANDERING, AGITATED, AND HITTING OTHER RESIDENTS. PATIENT TRANSPORTED TO RETIREMENT VIA EMS. UPON ARRIVAL TO RETIREMENT, PATIENT WAS CALM AND COOPERATIVE WITH ADMISSION ASSESSMENTS. CONSENTS TO TREAT RECEIVED FROM SPOUSE, SUSAN LAFLEUR. PATIENT [place] [address] GIVEN TO SPOUSE. PATIENT ORIENTED TO UNIT, ROOM, AND CALL [facility] SYSTEM.
[2019-08-14 13:35] VITALS: BP 108/44
[2019-08-14 14:03] LABS: HEMATOCRIT 37.2 % (36.0-48.0); MCHC 32.3 g/dL (31.0-37.0); MCV 89.9 fL (80.0-100.0); MEAN PLATELET VOLUME 10.7 fL (7.4-10.4); NEUTROPHILS 65.2 % (40-80); PLATELET COUNT 256 10x3/uL (130-400); RBC 4.14 10x6/uL (4.00-5.40); RDW 13.1 % (11.5-14.5); WBC 4.9 10x3/uL (4.8-10.8)
[2019-08-14 14:36] LABS: ALBUMIN 2.9 g/dL (3.4-5.0); ANION GAP 10.6 mmol/L (8-16); BILIRUBIN - TOTAL 0.21 mg/dL (0.2-1.3); CHOL - HDL RATIO 4.6 ratio (2.3-4.1); CREATININE - SERUM 0.8 mg/dL (0.6-1.3); POTASSIUM - SERUM 3.6 mmol/L (3.5-5.1); THYROID STIMULATING HORMONE 0.75 uIU/mL (0.36-3.74)
[2019-08-14 15:44] VITALS: BP 108/54; BMI 19.1
--- NOTE | 2019-08-14 22:07 | NUR ---
B.) PT IS ALERT AND ORIENTED TO SELF. SHE IS RECEIVED IN THE DAYROOM SOCIALIZING WITH PEERS. SHE IS EXIT SEEKING AT TIMES. SHE IS CALM AND COOPERATIVE WITH STAFF. I.) PROVIDED PM MEDICATIONS PRESCRIBED. REDIRECT OFTEN. R.) COMPLIANT WITH ALL MEDICATIONS. DIFFICULT TO REDIRECT AT TIMES. P.) WILL CONTINUE TO MONITOR.
[2019-08-15 07:10] LABS: RAPID PLASMA REAGIN Non Reactive (Non Reactive)
--- NOTE | 2019-08-15 08:45 | NUR ---
RECEIVED IN HALLWAY OUTSIDE OF NURSES STATION. CALM AND COOPERATIVE WITH CARE AND ASSESSMENT. NO AGGRESSIVE BEHAVIORS. REDIRECT AND REORIENT NEEDED. EATING BREAKFAST AT THIS TIME. CONTINUE PLAN OF CARE.
[2019-08-15 10:10] VITALS: BP 143/54
[2019-08-15 14:39] VITALS: Ht 170.2 cm; Wt 54.2 kg
--- NOTE | 2019-08-15 14:43 | PSY ---
PATIENT NAME:ALMA LAFLEUR MEDICAL RECORD: [id number] : 42 LOCATION:[facility] ADMISSION DATE: 08/14/19 ACCOUNT: [id number] PSYCHIATRIC EVALUATION DATE OF EVALUATION: 08/14/19 IDENTIFYING DATA: The patient is 79 years old and she is well known to me from previous clinical contact. CHIEF COMPLAINT: Aggression. HISTORY OF PRESENT ILLNESS: The patient was recently discharged from this facility. She was sent to an assisted living center. They are now calling saying that she has been aggressive and agitative and unmanageable there. This is very similar to the behaviors that brought her here in the middle of June. At that time, she was living at home with her and having these behaviors. She is clearly very confused and only oriented to person and is not able to give a good history. PAST MEDICAL HISTORY: Remarkably clean for this elderly woman who takes no scheduled medications except what she is being given for dementia and the behavior problems associated with that dementia. PAST PSYCHIATRIC HISTORY: Significant for a previous hospitalization here in June of this year. She does not have a longstanding history of psychiatric problems. FAMILY HISTORY: Significant for heart disease and cancer. ALLERGIES: No known drug allergies. CURRENT MEDICATIONS: Vitamin B12, Zoloft, trazodone, Klonopin, Seroquel, and Aricept. SOCIAL HISTORY: The patient is and has adult children. She denies drug or alcohol use. She apparently functioned reasonably well both socially and occupationally. MENTAL STATUS EXAMINATION: The patient is awake, alert and oriented to person and place, but not to time or situation. Her mood is flat. Her affect is generally appropriate. Thought processes are circumstantial. Memory, concentration, and abstraction abilities are impaired and she denies that she would seek to harm herself or others. She denies psychotic symptoms. ASSETS: Supportive family members. LIABILITIES: Poor insight. DIAGNOSTIC IMPRESSION: AXIS I: Major neurocognitive disorder of the Alzheimer's type with behavioral disturbances. AXIS II: None. AXIS III: None. AXIS IV: Moderate. AXIS V: Global assessment of functioning is 35. PLAN: At this time, the patient is admitted to the hospital secondary to aggressive behaviors. Current medications will be maintained. She will be observed and naturally adjustments will be made in her medications to reduce the level of agitation. In addition to this, an assessment of her living situation will take place to ensure that it is appropriate for her level of impairment and need. TRANSINT:[id number] Voice Confirmation ID: [id number] DOCUMENT ID: [id number] VI LEAVITT MD at 1443 CC: [id number] DICTATION DATE: 08/14/19 1604 SUPERVISOR ASSEMBLY ROOM: 08/14/19 1645 ADM IN [place] [address] [place] [address]
[2019-08-15 20:26] VITALS: BP 122/53
--- NOTE | 2019-08-15 21:54 | NUR ---
B.) PT IS ALERT AND ORIENTED TO SELF ONLY. SHE IS EXIT SEEKING AND AGGITATED WITH STAFF. SHE IS PILFERING THROUGH PEOPLES BLANKETS. SHE IS INCREASINGLY GETTING AGGITATED WITH DIRECTION. SHE HAS POOR INSIGHT INTO HER SITUATION. I.) PROVIDED PM MEDICATIONS PRESCRIBED. REDIRECT OFTEN. R.) COMPLIANT WITH ALL MEDIATIONS. DIFFICULT TO REDIRECT. P.) WILL CONTINUE TO MONITOR.
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
[2019-08-16 08:43] LABS: BACTERIA FEW /hpf (NEGATIVE); BILIRUBIN NEGATIVE (NEGATIVE); EPITHELIAL CELLS OCC /hpf (0-5); GLUCOSE NEGATIVE (NEGATIVE); KETONE NEGATIVE (NEGATIVE); NITRITE NEGATIVE (NEGATIVE); RED CELLS - URINE OCC /hpf (0-5); SPECIFIC GRAVITY 1.015 (1.005-1.020); UROBILINOGEN NORMAL (NORMAL); WHITE CELLS - URINE OCC /hpf (NEGATIVE)
[2019-08-16 09:29] VITALS: BP 120/57
--- NOTE | 2019-08-16 10:52 | NUR ---
PT SITTING IN NAYELY CHAIR. NO ACUTE DISTRESS NOTED. PT HAS BEEN DROWSY THIS A.M. PT HAS NO HAD AN REPORTED BEHAVIORS AND NONE NOTED THUS FAR. PT IS COMPLIANT WITH ASSESSMENT, VITALS SIGNS AND MEDS. PT IS CONFUSED AND ALERT TO SELF ONLY. REDIRECT AND REORIENT NEEDED. CHAIR ALARM IN PLACE AND ACTIVE. WILL CONT PLAN OF CARE.
--- NOTE | 2019-08-16 14:06 | PN ---
PATIENT:ALMA LAFLEUR MEDICAL RECORD: [id number] LOCATION:[facility] [place] ADMISSION DATE: 08/14/19 PROGRESS NOTE DATE OF SERVICE: 08/15/2019 SUBJECTIVE: The patient's case was discussed with staff. She has no new complaint. OBJECTIVE: The patient denies intent to harm herself or others. She is generally tolerating her medicines well. She has been agitated at times, but is calm when I speak with her. She is participating in treatment reasonably well. Her cognition is significantly and seriously impaired. ASSESSMENT: Dementia. PLAN: The patient is going to be treated with Namenda at a dose of 2.5 mg twice daily. She will be monitored for clinical changes associated with its use. Her long-term prognosis is guarded. TRANSINT:[id number] Voice Confirmation ID: [id number] DOCUMENT ID: [id number] VI LEAVITT MD at 1406 CC: [id number] DICTATION DATE: 08/15/19 1500 ELECTRICIAN SUPERVISOR SUBSTATION: 08/15/19 1512 [facility] IN [place] [id number] [place] [id number]
[2019-08-16 21:40] VITALS: BP 145/48
--- NOTE | 2019-08-17 01:43 | NUR ---
B)RECEIVED PATIENT SITTING IN A CHAIR. CONFUSED AND DISORIENTED. PREOCCUPIED WITH FINDING HER . I)ADMINISTER MEDS AND MONITOR COMPLIANCE. REORIENT NEEDED. R)MED COMPLIANT. POOR REDIRECTION DUE TO IMPAIRED ABIITY TO COMPREHEND, PROCESS AND RETAIN INFORMATION. UNABLE TO SEPARATE REALITY FROM FANTASY. P)CONTINUE POC AND PROVIDE SAFE ENVIRONMENT.
[2019-08-17 07:59] VITALS: BP 137/68
--- NOTE | 2019-08-17 08:43 | NUR ---
The patient is awake, she is confused, but her demeaner is calm, she has poor insight into her situation. She has not shown any aggression this am. She is sitting at the breakfast table with other patients and she is encouraged to eat, but she is acting like she is sleepy. Provide prescribed meds, redirect tp appropriate behavior as needed. The patient is pleasant at this time. Continue POC.
--- NOTE | 2019-08-17 09:35 | NUR ---
Team Treatment Review Diet: Regular Diet PO intake: 62% avg x 6 meals Snack x 1- 100% Patient can feed self BM: No BM recorded since admit Admit wt: 121 lbs (08/13) Significant meds: Vit B12, Vit D, Oscal D Significant labs: Recorded on 08/13- Calcium-8.0(L). Albumin-2.9(L) Will continue to monitor patient closely. Will monitor po intake, diet changes, nutrition-related labs/meds, wt changes, skin integrity, and BM frequency. Clinical Dietitian Following
--- NOTE | 2019-08-17 16:18 | PN ---
PATIENT:ALMA LAFLEUR MEDICAL RECORD: [id number] LOCATION:[facility] [place] ADMISSION DATE: 08/14/19 PROGRESS NOTE DATE OF SERVICE: 08/16/2019 SUBJECTIVE: The patient's case was discussed with staff. She has no new complaint. OBJECTIVE: The patient denies intent to harm herself or others. She is tolerating her medicines well. She is only partially oriented. She is eating adequately and sleeping acceptably. Unfortunately, last night, she was combative with the staff and could not be redirected. She did require IM Haldol and Ativan. ASSESSMENT: Dementia. PLAN: The patient's Seroquel is going to be discontinued and she is going to be treated with a low dose of Geodon for her agitation. She will be monitored for clinical changes associated with its use. Her long-term prognosis is guarded. TRANSINT:[id number] Voice Confirmation ID: [id number] DOCUMENT ID: [id number] VI LEAVITT MD at 1618 CC: [id number] DICTATION DATE: 08/16/19 1422 BULK SYSTEM OPERATOR: 08/16/[address] [facility] [address] [place] [id number]
[2019-08-17 20:46] VITALS: BP 126/51
--- NOTE | 2019-08-17 21:34 | NUR ---
PATIENT RECEIVED HALDOL AND ATIVAN IM FOR EXTREME AGITATION, CURSING, SHE KICKED THE GARBAGE CAN IN HER ROOM, VERY HARD TO REDIRECT. WILL MONITOR AND FOLLOW POC
--- NOTE | 2019-08-17 22:23 | NUR ---
PATIENT IS A LITTLE CALMER, STILL WANDERING AND INVADING SPACE, REACHING OVER THE NURSE'S STATION TRYING TO GRAB THE PHONE. WILL MONITOR
[2019-08-18 08:22] VITALS: BP 107/49
--- NOTE | 2019-08-18 10:28 | NUR ---
The patient is awake and alert she is calm this am, she remains confused. She has poor insight into her situation. She got up from breakfast and she was trying to pull her pants down and urinate in the dining room, assisted her to the bathroom and she had wet her pants, cleaned her up and put new clothes on her. She has not shown any aggression today. Provide prescribed meds. The patient is compliant with meds. Continue POC.
[2019-08-18 20:00] VITALS: BP 157/63
--- NOTE | 2019-08-19 02:20 | NUR ---
B) Patient is alert and oriented to self, restless and wanders at times, intrusive with staff and other patients at times, I) Administered scheduled medications as ordered, monitored for safety, redirected as needed, R) mediation compliant, sleeping now quietly in her bed, P) Continue plan of care.
--- NOTE | 2019-08-19 10:06 | NUR ---
The patient is awake, she is confused, she has poor insight into her situation. She is calm, she has not shown any aggression this am. She ambulates independently. Provide prescribed meds. The patient is compliant with meds. Continue POC.
[2019-08-19 11:10] VITALS: BP 115/58
--- NOTE | 2019-08-19 13:35 | PN ---
PATIENT:ALMA LAFLEUR MEDICAL RECORD: [id number] LOCATION:[facility] [place] ADMISSION DATE: 08/14/19 PROGRESS NOTE DATE OF SERVICE: 08/18/2019 DATE OF SERVICE: 08/18/2019 SUBJECTIVE: The patient's case was discussed with staff. The patient states that she slept well and that breakfast was good. OBJECTIVE: The patient's general appearance is slightly disheveled. She is ambulatory. Her speech is soft, low tone, low volume. Her associations are loose. Her eye contact is fair. Her judgment and insight is impaired. Her thought and concentration is distracted. Her mood is depressed, easily agitated. Affect is flat, narrow in range. No abnormal movements were observed. Her anxiety is [id number]. Her memory is poor for both recent and remote events. The patient does not appear to be attending to visual or auditory hallucinations. ASSESSMENT: Dementia. PLAN: Continue to monitor her tolerance for medications to assess her for the reduction of agitation and mood stabilization with a goal to return her to her previous setting. Dictated By: Sofia Viveros APN I have interviewed/examined the above patient and agree with these documented findings. TRANSINT:[id number] Voice Confirmation ID: [id number] DOCUMENT ID: [id number] VI LEAVITT MD at 1454 at 1335 CC: [id number] DICTATION DATE: 08/18/19 1204 PACKAGE WORKER: 08/18/19 1659 ADM IN [facility] [address] [place] [address]
[2019-08-19 20:00] VITALS: BP 135/58
--- NOTE | 2019-08-19 21:22 | NUR ---
B.) PT IS ALERT AND ORIENTED TO SELF ONLY. SHE HAS POOR INSIGHT INTO HER SITUATION. SHE IS ABLE TO AMBULATE AND MAKE HER NEEDS KNOWN. SHE IS COMBATIVE WITH STAFF AT TIMES. I.) PROVIDE PM MEDICATIONS PRESCRIBE. REDIRECT OFTEN. R.) COMPLIANT WITH ALL MEDICATIONS. DIFFICULT TO REDIRECT AT TIMES. P.) WILL CONTINUE TO MONITOR.
--- NOTE | 2019-08-20 13:48 | PN ---
PATIENT:ALMA LAFLEUR MEDICAL RECORD: [id number] LOCATION:[facility] [place] ADMISSION DATE: 08/14/19 PROGRESS NOTE DATE OF SERVICE: 08/19/2019 DATE OF SERVICE: 08/19/2019 SUBJECTIVE: The patient's case was discussed with staff. The patient reports that she slept well. The patient states she is not hungry. OBJECTIVE: The patient's general appearance is slightly disheveled. She is ambulatory. Her speech is soft, low tone, low voice. Her associations are loose. Her eye contact is fair. Her judgment and insight is impaired. Her thought and concentration is distracted. Her mood is depressed, easily agitated. Affect is flat narrow in range. Her anxiety is mild to moderate. Her memory is poor for both recent and remote events. The patient does not appear to be attending to visual or auditory hallucinations. The patient is oriented to person, disoriented to place, time and situation. ASSESSMENT: No change in previous diagnosis. PLAN: We will start her on Megace to see if we can stimulate her appetite. We will continue to monitor her tolerance to her medication and also for reduction of agitation and mood stabilization with a goal to return her to her previous level of living. Dictated By: Sofia Viveros APN I have interviewed/examined the above patient and agree with these documented findings. TRANSINT:[id number] Voice Confirmation ID: [id number] DOCUMENT ID: [id number] VI LEAVITT MD at 1454 at 1348 CC: [id number] DICTATION DATE: 08/19/19 1335 PINNER PRINTED CIRCUIT BOARDS: 08/19/19 1517 ADM IN [facility] [address] [place] [id number]
--- NOTE | 2019-08-20 15:26 | NUR ---
ALERT, CALM, CONFUSED, NO AGGRESSION OR OTHER ADVERSE BEHAVIORS NOTED. MEDS ADMIN PER ORDERS WITH COMPLETE MED COMPLIANCE NOTED. CONTINUE PLAN OF CARE.
[2019-08-20 20:00] VITALS: BP 131/52
--- NOTE | 2019-08-20 20:39 | NUR ---
B.) PT IS ALERT AND ORIENTED TO SELF ONLY. SHE HAS POOR INSIGHT INTO HER SITUATION. SHE IS ABLE TO AMBULATE WITHOUT ASSIST AND MAKE HER NEEDS KNOWN. SHE IS RECEIVED IN THE DAYROOM. SHE IS CALM AND COOPERATIVE WITH STAFF. I.) PROVIDED PM MEDICATIONS PRESCRIBED. REDIRECT IF NEEDED. R.) COMPLIANT WITH ALL MEDICATIONS. DIFFICULT TO REDIRECT. P.) WILL CONTINUE TO MONITOR.
--- NOTE | 2019-08-21 08:30 | NUR ---
RECEIVED IN HALLWAY OUTSIDE OF NURSES STATION. CALM AND COOPERATIVE WITH CARE AND ASSESSMENT. PLEASANTLY CONFUSED. NO AGGRESSIVE BEHAVIOR. REDIRECT AND REORIENT NEEDED. EATING BREAKFAST AT THIS TIME. CONTINUE PLAN OF CARE.
[2019-08-21 08:42] VITALS: BP 130/80
--- NOTE | 2019-08-21 14:54 | PN ---
PATIENT:ALMA LAFLEUR MEDICAL RECORD: [id number] LOCATION:[facility] ADMISSION DATE: 08/14/19 PROGRESS NOTE DATE OF SERVICE: 08/20/2019 SUBJECTIVE: The patient's case was discussed with staff. The patient does wander. The patient reports that she slept well and that she is not hungry. OBJECTIVE: The patient's general appearance is appropriate for her environment. Her speech is soft, low tone, low volume. Her orientation is alert to person, disoriented to place, time and situation. Her associations are loose. The patient does appear to have some mild blocking. Her judgment and insight are impaired. Her impulsivity is high. Her mood is depressed, easily agitated. Affect is flat, narrow in range. Her anxiety is mild to moderate. Her memory is poor for both recent and remote events. The patient does not appear to be attending to any visual or auditory hallucinations or delusions. ASSESSMENT: No change in previous diagnosis. PLAN: The patient was started on Megace. The patient's appetite is still decreased. We will continue to monitor. Her tolerance to her medication and we will monitor her for mood stabilization with a goal to return her to her previous level of living. Dictated By: Sofia Viveros APN I have interviewed/examined the above patient and agree with these documented findings. TRANSINT:[id number] Voice Confirmation ID: [id number] DOCUMENT ID: [id number] VI LEAVITT MD at 1454 at 1403 CC: [id number] DICTATION DATE: 08/20/19 1348 PROFESSOR OF LITERATURE: 08/20/19 1603 ADM IN [facility] [address] [place] [address]
--- NOTE | 2019-08-21 14:54 | PN ---
PATIENT:ALMA LAFLEUR MEDICAL RECORD: [id number] LOCATION:[facility] [place] ADMISSION DATE: 08/14/19 PROGRESS NOTE DATE OF SERVICE: 08/17/2019 SUBJECTIVE: The patient's case was discussed with staff. She has no new complaint. OBJECTIVE: The patient is in good behavioral control. She is significantly calmer. She has pretty limited insight about her situation. ASSESSMENT: Dementia. PLAN: The patient is currently being treated with Geodon. She will be monitored for clinical changes associated with its use. She did sleep well last night. I am going to discontinue the trazodone. TRANSINT:[id number] Voice Confirmation ID: [id number] DOCUMENT ID: [id number] VI LEAVITT MD at 1454 CC: [id number] DICTATION DATE: 08/17/19 1621 SHIPPER/RECEIVER: 08/17/19 1815 ADM IN [place] [id number] [place] [address]
--- NOTE | 2019-08-21 19:39 | NUR ---
RECEIVED IN DAYROOM. SITTING IN A CHAIR WITH PEERS AT HER SIDE. CALM AND COOPERATIVE WITH CARE AND ASSESSMENT. NO SIGNS OF AGITATION. REDIRECT AND REORIENT NEEDED. SITTING CALMLY IN DAYROOM. CONTINUE PLAN OF CARE
[2019-08-21 19:58] VITALS: BP 123/46
--- NOTE | 2019-08-22 00:05 | NUR ---
UP FROM BED. PACING HALLWAY. COMBATIVE WITH REDIRECTION. SPIT IN NURSES FACE. PRN ATIVAN 0.5 MG IM GIVEN FOR ANXIETY AND PRN HALDOL 2 MG IM GIVEN FOR PSYCHOTIC BEHAVIOR. CONTINUE TO MONITOR FOR SAFETY.
--- NOTE | 2019-08-22 01:13 | NUR ---
RESTING IN BED WITH EYES CLOSED. HENNY ALARM ON.
--- NOTE | 2019-08-22 08:30 | NUR ---
RECEIVED IN HALLWAY OUTSIDE OF NURSES STATION. DROWSY. CALM AND COOPERATIVE WITH CARE AND ASSESSMENT. NO AGGRESSIVE BEHAVIORS. REDIRCT AND REORIENT NEEDED. EATING BREAKFAST AT THIS TIME. CONTINUE PLAN OF CARE.
[2019-08-22 08:43] VITALS: BP 135/58
--- NOTE | 2019-08-22 13:01 | PN ---
PATIENT:ALMA LAFLEUR MEDICAL RECORD: [id number] LOCATION:[facility] [place] ADMISSION DATE: 08/14/19 PROGRESS NOTE DATE OF SERVICE: 08/21/2019 SUBJECTIVE: The patient's case was discussed with staff. She has no new complaint. OBJECTIVE: The patient is in good behavioral control and has very limited insight about her condition. She is only partially oriented. ASSESSMENT: Dementia. PLAN: The patient has no thoughts of harming herself or others and although she may have a depressive component to her situation, I do not think it is significant. Based on this line of thinking, I am going to reduce her Zoloft slightly. I do not think it will have any effect on her mood and I do think it will reduce the likelihood of medication side effect. TRANSINT:[id number] Voice Confirmation ID: [id number] DOCUMENT ID: [id number] VI LEAVITT MD at 1301 CC: [id number] DICTATION DATE: 08/21/19 1601 DRILLER AND BROACHER: 08/21/19 1710 ADM IN [place] [id number] [place] [id number]
[2019-08-22 20:00] VITALS: BP 130/60
--- NOTE | 2019-08-22 20:16 | NUR ---
RECEIVED IN DAYROOM. SITTING IN A WHEELCHAIR. CALM AND COOPERATIVE WITH CARE AND ASSESSMENT. RESTLESS. ATTEMPTS TO STAND WITHOUT ASSIST. NO SIGNS OF AGGRESSION. REDIERCT AND REORIENT NEEDED. RESTING IN RECLINER AT NURSES STATION AT THIS TIME. CONTINUE PLAN OF CARE
--- NOTE | 2019-08-23 09:15 | NUR ---
RECEIVED IN HALLWAY OUTSIDE OF NURSES STATION. CALM AND COOPERATIVE WITH CARE AND ASSESSMENT. PLEASANTLY CONFUSED. NO AGGRESSIVE BEHAVIORS. REDIRECT AND REORIENT NEEDED. EATING BREAKFAST AT THIS TIME. CONTINUE PLAN OF CARE.
[2019-08-23 10:47] VITALS: BP 106/47
--- NOTE | 2019-08-23 10:50 | PN ---
PATIENT:ALMA LAFLEUR MEDICAL RECORD: [id number] LOCATION:[facility] [place] ADMISSION DATE: 08/14/19 PROGRESS NOTE DATE OF SERVICE: 08/22/2019 SUBJECTIVE: The patient's case was discussed with staff. She has no new complaint. OBJECTIVE: The patient is quite confused, especially in the afternoon and evening. She is often wandering about the halls. She has very limited insight about this. ASSESSMENT AND PLAN: The patient was given a higher dose of Klonopin and Namenda starting yesterday. I do not believe it has had an opportunity to be effective. She will be monitored for clinical changes. TRANSINT:[id number] Voice Confirmation ID: [id number] DOCUMENT ID: [id number] VI LEAVITT MD at 1050 CC: [id number] DICTATION DATE: 08/22/19 1326 SUPERVISOR VOLUNTEER SERVICES: 08/22/19 1737 ADM IN [place] [id number] [place] [address]
[2019-08-23 17:34] LABS: BASOPHILS 0.2 % (0-2); EOSINOPHILS 0.4 % (0-7); HEMATOCRIT 42.1 % (36.0-48.0); HEMOGLOBIN 13.5 g/dL (12-16); IMMATURE GRANULOCYTES 0.1 % (0-5); LYMPHOCYTES 39.3 % (15-50); MCHC 32.1 g/dL (31.0-37.0); MCV 90.5 fL (80.0-100.0); MEAN PLATELET VOLUME 10.9 fL (7.4-10.4); MONOCYTES 8.3 % (2-11); NEUTROPHILS 51.7 % (40-80); RBC 4.65 10x6/uL (4.00-5.40); RDW 13.2 % (11.5-14.5); WBC 8.1 10x3/uL (4.8-10.8)
[2019-08-23 18:06] LABS: PLATELET COUNT 367 10x3/uL (130-400)
[2019-08-23 18:24] LABS: CALCIUM 9.3 mg/dL (8.5-10.1); CARBON DIOXIDE 27.8 mmol/L (21.0-32.0); CREATININE - SERUM 0.9 mg/dL (0.6-1.3); POTASSIUM - SERUM 3.8 mmol/L (3.5-5.1)
--- NOTE | 2019-08-23 21:44 | NUR ---
B.) PT IS ALERT AND ORIENTED TO SELF ONLY. SHE IS ABLE TO AMBUALATE WITHOUT ASSIST. SHE IS ABLE TO MAKE HER NEEDS KNOWN. SHE IS CALM AND COOPERATIVE WITH STAFF. SHE IS RECEIVED IN THE DAYROOM SOCIALIZING WITH HER PEERS. I.) PROVIDED PM MEDICATIONS PRESCRIBED. REDIRECT OFTEN. R.) COMPLIANT WITH ALL MEDICATIONS. EASY TO REDIRECT. P.) WILL CONTINUE TO MONITOR.
[2019-08-23 23:41] VITALS: BP 144/57
--- NOTE | 2019-08-24 11:31 | NUR ---
PT SITTING CHAIR AT THIS TIME WITH EYES CLOSED. PT CAN AMBUALTE WITHOUT ASSISTANCE. PT CAN MAKE SOME NEEDS KNOWN. PT IS COMPLIANT WITH MEDS, VITALS AND ASSESSMENTS. PT IS CALM AND COOPERATIVE WITH STAFF. PT IS ALERT AND CONFUSED ORIENTED TO SELF ONLY. REDIRECT OFTEN AND REORIENT NEEDED. WILL CONT PLAN OF CARE. CHAIR ALARM IN PLACE AND ACTIVE.
--- NOTE | 2019-08-24 12:26 | PN ---
PATIENT:ALMA LAFLEUR MEDICAL RECORD: [id number] LOCATION:[facility] [place] ADMISSION DATE: 08/14/19 PROGRESS NOTE DATE OF SERVICE: 08/23/2019 SUBJECTIVE: The patient's case was discussed with staff. She has no new complaint. OBJECTIVE: The patient slept reasonably well last night. Unfortunately, she is still not eating adequately. She has not been aggressive today. She is significantly calmer without being over sedated. ASSESSMENT: Dementia. PLAN: The patient is being given Megace to adjust her appetite concerns. She is going to have a baseline laboratories rechecked to ensure she is not getting into any kind of metabolic difficulty. TRANSINT:[id number] Voice Confirmation ID: [id number] DOCUMENT ID: [id number] VI LEAVITT MD at 1226 CC: [id number] DICTATION DATE: 08/23/19 1637 CONTINUOUS LOFT OPERATOR: 08/23/19 1807 ADM IN [place] [id number] [place] [id number]
[2019-08-24 13:18] VITALS: BP 128/73
--- NOTE | 2019-08-24 13:57 | NUR ---
Nutrition Follow-up: Noted Megac[place] started 08/19. Diet: Regular PO intake: 67% avg x 9 meals Wt: 117# (08/19); 121.8# (admit) Last BM: 08/23 Meds noted: Senashleyot, Renance, vitamin B12, vitamin D, Oscal D -Encourage PO intake and honor food preferences. -+Ensure with meals; wt loss noted. -Monitor wt. -RD following.
[2019-08-24 20:00] VITALS: BP 113/51
--- NOTE | 2019-08-24 20:59 | NUR ---
B.) PT IS ALERT AND ORIENTED TO SELF ONLY. SHE HAS POOR INSIGHT INTO HER SITUATION. SHE IS ABLE TO AMBULATE WITHOUT ASSIST AND MAKE HER NEEDS KNOWN. SHE IS CALM, COOPERATIVE AND PLEASANT WITH STAFF. I.) PROVIDED PM MEDICATIONS PRESCRIBED. REDIRECT OFTEN. R.) COMPLIANT WITH ALL MEDICATIONS. EASY TO REDIRECT. P.) WILL CONTINUE TO MONITOR.
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
--- NOTE | 2019-08-25 00:30 | NUR ---
PT RESTING CALMLY IN HER BED WITH EYES CLOSED. WILL CONTINUE TO MONITOR.
[2019-08-25 09:38] VITALS: BP 140/72
--- NOTE | 2019-08-25 12:07 | NUR ---
ALERT, CALM, CONFUSED, NO AGITATION THUS FAR THIS SHIFT, NO AGGRESSION, FLAT AFFECT, FEEDS SELF AFTER SETUP. MEDS CRUSHED AND MIXED WITH PUDDING AND ADMIN PER ORDERS, COOPERATIVE WITH MEDS. CONT PLAN OF CARE.
[2019-08-25 20:00] VITALS: BP 127/50
--- NOTE | 2019-08-25 22:29 | NUR ---
B)RECEIVED PATIENT SITTING IN A CHAIR IN THE DAYROOM. CONFUSED AND WILL WANDER AROUND. UNABLE TO FOLLOW TOPIC OF CONVERSATION IE WHEN ASKED PATIENT WHERE IS SHE PATIENT RELATED "I DIDN'T NEED ANYTHING." WILL WANDER INTO OTHER PATIENT'S ROOM. I)ADMINSITER MEDS AND MONITOR COMPLIANCE. REORIENT NEEDED. R)MED COMPLIANT. POOR REORIENTATION DUE TO IMPAIRED ABILITY TO COMPREHEND, PROCESS AND RETAIN INFORMATION. P)CONTINUE POC AND PROVIDE SAFE ENVIRONMENT,
[2019-08-26 09:20] VITALS: BP 108/54
--- NOTE | 2019-08-26 09:29 | NUR ---
The patient is confused, she is wandering she has poor insight into her situation and she has poor short term memory. She does not follow simple commands easily. Provide prescribed meds, redirect to appropriate behavior as needed. The patient is compliant with meds. She has not shown aggression this am. Continue POC.
--- NOTE | 2019-08-26 16:05 | PN ---
PATIENT:ALMA LAFLEUR MEDICAL RECORD: [id number] LOCATION:[facility] ADMISSION DATE: 08/14/19 PROGRESS NOTE DATE OF SERVICE: 08/25/2019 SUBJECTIVE: The patient's case was discussed with staff. The patient is sitting at the table. The patient does make eye contact. She denies any new complaint. OBJECTIVE: The patient's appearance is appropriate for environment. Her orientation is alert to person, disoriented to place, time, and situation. Her speech is soft, low tone, low volume. Associations are loose. Her eye contact is fair. Her insight is impaired. Her impulsivity is moderate. Her mood is depressed. Her affect is flat narrow in range. The patient is easily agitated, was given a p.r.n. medication last night. Memory is poor for both recent and remote events. The patient does not appear to be attending to any visual or auditory hallucinations. ASSESSMENT: No change. PLAN: Continue to monitor the patient for tolerance and change in medication. Monitor for mood. Monitor for decrease in agitation and aggressive behavior and keep the patient safe and continue to prepare the patient for discharge. Dictated By: Sofia Viveros APN I have interviewed/examined the above patient and agree with these documented findings. TRANSINT:[id number] Voice Confirmation ID: [id number] DOCUMENT ID: [id number] VI LEAVITT MD at 1443 at 1605 CC: [id number] DICTATION DATE: 08/25/19 1358 MORTGAGE LOAN OFFICER: 08/25/19 2152 ADM IN [id number] [place] [address]
[2019-08-26 20:00] VITALS: BP 110/57
--- NOTE | 2019-08-26 21:58 | NUR ---
PT WANDERING ON UNIT. KEEPS GOING UP TO A PATIENT AND CALLING HIM DADDY AND TOUCHING HIM. PT IS ANXIOUS WANDERING AND BECOMES AGITATED AND AGGRESIVE WITH STAFF WHEN REDIRECTED. CARLOS BHATT ADMINISTERED IM PER ORDERS.
--- NOTE | 2019-08-27 02:45 | NUR ---
B)RECEIVED PATIENT SITTING IN THE DAYROOM. RESTLESS AND MOVES FROM CHAIR TO CHAIR. FOLLOWS PEOPLE AROUND ON THE UNIT. CONFUSED AND DISORIENTED. I)ADMINSITER MEDS AND MONITOR COMPLIANCE. REORIENT NEEDED. R)MED COMPLIANT. POOR REORIENTATION. PT WILL ARGUE WITH STAFF. IMPAIRED ABILITY TO COMPREHEND, PROCESS AND RETAIN INFORMATION. P)CONTINUE POC AND PROVIDE SAFE ENVIRONMENT.
--- NOTE | 2019-08-27 08:30 | NUR ---
RECEIVED IN HALLWAY OUTSIDE OF NURSES STATION. CALM AND COOPERATIVE WITH CARE AND ASSESSMENT. VERY DROWSY THIS MORNING. NO AGGRESSIVE BEHAVIOR. REDIRECT AND REORIENT NEEDED. EATING BREAKFAST AT THIS TIME. CONTINUE PLAN OF CARE.
[2019-08-27 08:44] VITALS: BP 143/50
--- NOTE | 2019-08-27 08:57 | PN ---
PATIENT:ALMA LAFLEUR MEDICAL RECORD: [id number] LOCATION:[facility] ADMISSION DATE: 08/14/19 PROGRESS NOTE DATE OF SERVICE: 08/26/2019 SUBJECTIVE: The patient's case was discussed with staff. The patient is sitting in a chair. The patient does make eye contact. The patient denies any complaints. The patient reports that she did sleep okay last night. There is report the patient only slept 1-1/2 hour last night, did have a moment of being aggressive was difficult to redirect; however, did not require a p.r.n. medication. OBJECTIVE: The patient's appearance is appropriate for her environment. ORIENTATION: alert to person, disoriented to place, time, and situation. Her speech is soft, low tone and low volumes. Associations are loose. Her eye contact is fair. Her insight is impaired. Impulsivity is moderate. Her mood is depressed. Her affect is flat, narrow in range. The memory is poor for both recent and remote events. The patient does not appear to be attending to any visual or auditory hallucinations. ASSESSMENT: No change in previous. PLAN: Continue to monitor the patient for tolerance and change in medications. Monitor for mood. Monitor for decrease in agitation and aggressive behaviors and keep the patient safe will initiate trazodone 25 mg po hs in hopes to decrease her insomnia. Dictated By: Sofia Viveros APN I have interviewed/examined the above patient and agree with these documented findings. TRANSINT:[id number] Voice Confirmation ID: [id number] DOCUMENT ID: [id number] VI LEAVITT MD at 1443 at 0857 CC: [id number] DICTATION DATE: 08/26/19 1512 CATTLE DRIVER: 08/26/19 204 ADM IN [facility] [address] [place] [address]
--- NOTE | 2019-08-27 19:28 | NUR ---
RECEIVED IN DAYROOM. SITTING IN A CHAIR WITH PEERS AT HER SIDE. CALM AND COOPERATIVE WITH CARE AND ASSESSMENT. NO SIGNS OF AGGRESSION. REDIRECT AND REORIENT NEEDED. SITTING QUIETLY AT NURSES STATION AT THIS TIME. CONTINUE PLAN OF CARE
[2019-08-27 20:00] VITALS: BP 126/39
[2019-08-28 08:44] VITALS: BP 148/47
--- NOTE | 2019-08-28 14:43 | PN ---
PATIENT:ALMA LAFLEUR MEDICAL RECORD: [id number] LOCATION:[facility] ADMISSION DATE: 08/14/19 PROGRESS NOTE DATE OF SERVICE: 08/24/2019 SUBJECTIVE: The patient's case was discussed with staff. She has no new complaint. OBJECTIVE: The patient denies intent to harm herself or others. She generally tolerates her medicines well. ASSESSMENT: Dementia. PLAN: Brief supportive and educational interventions were made. Long-term prognosis is guarded. The patient ate and slept well yesterday. I am going to increase her Aricept slightly. TRANSINT:[id number] Voice Confirmation ID: [id number] DOCUMENT ID: [id number] VI LEAVITT MD at 1443 CC: [id number] DICTATION DATE: 08/24/19 1621 SILK WORKER: 08/24/19 1629 ADM IN [id number] [place] [address]
--- NOTE | 2019-08-28 14:44 | PN ---
PATIENT:ALMA LAFLEUR MEDICAL RECORD: [id number] LOCATION:[facility] ADMISSION DATE: 08/14/19 PROGRESS NOTE DATE OF SERVICE: 08/27/2019 SUBJECTIVE: The patient's case was discussed with staff. The patient is resting in a chair, did sleep 4.5 hours last night, is eating fair, was medicated with a p.r.n. last night as the patient became agitated with redirection after she was touching another patient, referring to him as "oh daddy" and the other patient was becoming agitated. OBJECTIVE: The patient appearance is mildly disheveled. She is oriented to person, disoriented to place, time and situation. Her speech is soft, low tone, low volume. Her associations are loose. Her eye contact is fair. Her judgment and insight is impaired. Her thought content, she has poverty of thought. Her mood is depressed and anxious, easily agitated. Her affect is flat, narrow in range. No tremors were noted. Her memory is poor for both recent and remote events. The patient does not appear to be attending to visual or auditory external stimuli. ASSESSMENT: No change in previous diagnosis. PLAN: We will continue to monitor her tolerance to medication and monitor her sleep, strive to stabilize her mood, decrease her agitation and aggressive behaviors and keep the patient safe, and prepare her for discharge. Dictated By: Sofia Viveros APN I have interviewed/examined the above patient and agree with these documented findings. TRANSINT:[id number] Voice Confirmation ID: [id number] DOCUMENT ID: [id number] VI LEAVITT MD at 1444 at 1653 CC: [id number] DICTATION DATE: 08/27/19 0855 POLE FRAME CONSTRUCTION WORKER: 08/27/19 1358 ADM IN [facility] [address] [place] [address]
--- NOTE | 2019-08-28 19:09 | NUR ---
RECEIVED IN DAYROOM. SITTING IN A CHAIR WITH PEERS AT HER SIDE. CALM AND COOPERATIVE WITH CARE AND ASSESSMENT. NO SIGNS OF AGGRESSION. REDIRECT AND REORIENT NEEDED. CONTINUES TO SIT CALMLY. CONTINUE PLAN OF CARE.
[2019-08-28 20:25] VITALS: BP 126/55
--- NOTE | 2019-08-29 02:50 | NUR ---
RESTING IN RECLINER EYES CLOSED.
[2019-08-29 08:15] VITALS: BP 132/61
--- NOTE | 2019-08-29 08:30 | NUR ---
RECEIVED IN HALLWAY OUTSIDE OF NURSES STATION. CALM AND COOPERATIVE WITH CARE AND ASSESSMENT. VERY DROWSY FROM PRN LAST NIGHT. PLEASANTLY CONFUSED. NO AGGRESSIVE BEHAVIOR. REDIRECT AND REORIENT NEEDED. EATING BREAKFAST AT THIS TIME. CONTINUE PLAN OF CARE.
--- NOTE | 2019-08-29 12:42 | PN ---
PATIENT:ALMA LAFLEUR MEDICAL RECORD: [id number] LOCATION:[facility] ADMISSION DATE: 08/14/19 PROGRESS NOTE DATE OF SERVICE: 08/28/2019 SUBJECTIVE: The patient's case was discussed with staff. She has no new complaint. OBJECTIVE: The patient is in good behavioral control. She is not, however, sleeping. ASSESSMENT: Dementia. PLAN: Current medicines have been reviewed and will be maintained. Her long-term prognosis is guarded. It does appear that this is probably the best behavioral control that can be arranged. TRANSINT:[id number] Voice Confirmation ID: [id number] DOCUMENT ID: [id number] VI LEAVITT MD at 1242 CC: [id number] DICTATION DATE: 08/28/19 1558 : 08/28/19 2110 ADM IN [id number] [place] [address]
--- NOTE | 2019-08-29 19:35 | NUR ---
RECEIVED IN DAYROOM. SITTING IN A RECLINER WITH PEERS AT HER SIDE. CALM AND COOPERATIVE WITH CARE AND ASSESSMENT. NO SIGNS OF AGGRESSION. REDIRECT AND REORIENT NEEDED. CONTINUES TO SIT CALMLY. CONTINUE PLAN OF CARE.
[2019-08-29 20:40] VITALS: BP 107/52
[2019-08-30 08:54] VITALS: BP 129/44
--- NOTE | 2019-08-30 10:02 | NUR ---
SPOKE WITH PT DAUGHTER ABOUT HOW SHE WAS DOING AND WHEN SHE COULD GO BACK TO THE [facility]. SHE ARE READY AND ANXIOUS FOR HER TO GO BACK BUT UNDERSTAND IF SHE IS STILL HAVING BEHAVIORS. PT DAUGHTER INQUIRED HOW HER DAY WAS GOING AND IF SHE RECIEVED A PRN. NO SHE DID NOT. SHE SAID SOMEONE FROM THE [facility] WOULD CALL TO GO OVER MEDICATIONS AND A DISCHARGE DATE.
--- NOTE | 2019-08-30 10:32 | NUR ---
SITTING IN CHAIR WITH EYES OPEN. NO C/O PAIN. NO S/S OF ACUTE DISTRESS NOTED. FREQUENT COUGH. DENIES ANY NEEDS AT THIS TIME. WILL CONTINUE TO MONITOR.
--- NOTE | 2019-08-30 14:56 | PN ---
PATIENT:ALMA LAFLEUR MEDICAL RECORD: [id number] LOCATION:[facility] ADMISSION DATE: 08/14/19 PROGRESS NOTE DATE OF SERVICE: 08/29/2019 SUBJECTIVE: The patient's case was discussed with staff. She has no new complaint. OBJECTIVE: The patient is fairly limited in her insight. She is impaired cognitively. She denies that she would seek to harm herself or others. ASSESSMENT: Dementia. PLAN: The patient's Geodon is going to be changed to a bedtime dosing schedule. Geodon is being used to treat her underlying behavior problems. TRANSINT:[id number] Voice Confirmation ID: [id number] DOCUMENT ID: [id number] VI LEAVITT MD at 1456 CC: [id number] DICTATION DATE: 08/29/19 1508 DINING ROOM SUPERVISOR: 08/29/19 1720 ADM IN [place] [address] [place] [id number]
[2019-08-30 19:55] VITALS: BP 120/58
--- NOTE | 2019-08-30 22:59 | NUR ---
B)RECEIVED PATIENT SITTING IN THE DAYROOM. CONFUSED AND DISORIENTED. PREOCCUPIED WITH ANOTHER PATIENT CALLING HIM DADTHOMAS. DOES NOT ACKNOWLEDGE STAFF WHEN TRYING TO TALK TO HER. I)ADMINISTER MEDS AND MONITOR COMPLIANCE. REORIENT NEEDED. R)MED COMPLIANT. POOR REORIENTATION DUE TO IMPAIRED ABILITY TO PORCESS, COMPREHEND AND RETAIN INFORMATION. P)CONTINUE POC AND PROVIDE SAFE ENVIRONMENT.
[2019-08-31 09:33] VITALS: BP 141/68
--- NOTE | 2019-08-31 10:20 | NUR ---
PT DAUGHTER CALLED AND WANTED A UPDATE. PASSCODE GIVEN. SHE WANTED TO KNOW HOW HER NIGHT WAS AND HOW SHE DID WITH THE STAFF. NURSE EXPLAINED SHE SLEPT 8.25 HOURS. PT WAS IN A GOOD MOOD LASTNIGHT AND WAS KIND OF FIESTY THIS A.M. SO SHE WAS COMING BACK AROUND. SHE VERBALIZED UNDERSTANDING. NURSE EXPLAINED THAT DR. LEAVITT STATED SHE WOULD PROBABLY BE WITH US FOR THE WEEKEND. SHE VERBALIZED UNDERSTANDING. SHE STATED SHE WOULD CALL BACK AND CHECK ON HER LATER.
--- NOTE | 2019-08-31 10:44 | NUR ---
SHE IS SETTING AT THE TABLE FOR BREAKFAST, ATE 100%. SHE IS QUIETLY WATCHING TV, TALKING WITH THE NURSING STAFF WHEN ADDRESSED.
--- NOTE | 2019-08-31 13:21 | PN ---
PATIENT:ALMA LAFLEUR MEDICAL RECORD: [id number] LOCATION:[facility] ADMISSION DATE: 08/14/19 PROGRESS NOTE DATE OF SERVICE: 08/30/2019 SUBJECTIVE: The patient's case was discussed with staff. She has no new complaint. OBJECTIVE: The patient denies intent to harm herself or others. She is cooperative, but poorly oriented. ASSESSMENT: Dementia. PLAN: The patient is going to be transitioned out of the hospital soon. The [facility] is going to come and evaluate her tomorrow. TRANSINT:[id number] Voice Confirmation ID: [id number] DOCUMENT ID: [id number] VI LEAVITT MD at 1321 CC: [id number] DICTATION DATE: 08/30/19 1528 OUTSIDE RIGGER: 08/30/19 1735 ADM IN [place] [id number] [place] [address]
--- NOTE | 2019-08-31 14:22 | NUR ---
Nutrition Follow-up: PO intake improving. Noted pt ate 100% of breakfast this AM. Diet: Regular, Ensure TID PO intake: 71% avg x 10 meals Wt: 118# (08/26); 117# (08/19); 121.8# (admit) Last BM: 08/27 No new labs Meds noted: Senokot, Megace, vitamin B12, vitamin D, Oscal D -Encourage PO intake and honor food preferences. -Monitor wt. -RD following.
[2019-08-31 20:10] VITALS: BP 116/58
--- NOTE | 2019-09-01 00:03 | NUR ---
B) Patient is alert and oriented to self, intrusive with staff and other patients, thinks they are babies and need to be taken care of, difficult to redirect, I) Administered scheduled medications as ordered, redirected as needed, R) Mediation compliant, combative with redirection, patient had a shower this shift, P) Continue plan of care.
--- NOTE | 2019-09-01 08:08 | NUR ---
The patient is awake and she is alert, oriented to her name only. She is pleasant. She is sitting in a w/c and she self propels and staff assist with transfers as she is unsteady at times. Provide prescribed meds. She has poor insight into her situation. Continue POC.
[2019-09-01 08:39] VITALS: BP 134/42
[2019-09-01 20:00] VITALS: BP 122/61
--- NOTE | 2019-09-01 23:33 | NUR ---
B) Patient is alert and oriented to self, intrusive and wanders, difficult to redirect. I) Admioinstered scheduled medications as ordered, monitored for safety R) Mediation compliant, sleeping quietly now, P) Continue plan of care.
--- NOTE | 2019-09-02 07:38 | NUR ---
The patient is awake and she is pleasant, she has not shown any aggression this am. She is dressed and ready to eat breakfast. She ambulates at times, but she is unsteady, currently she is in a w/c and she moves her feet and goes backward to self propel. Provide prescribed meds, redirect as needed. The patient does not redirect well, she does not like anyone telling her what to do. Continue POC.
[2019-09-02 09:05] VITALS: BP 129/68
[2019-09-02 20:00] VITALS: BP 129/49
--- NOTE | 2019-09-02 22:10 | NUR ---
B.) PT IS ALERT AND ORIENTED TO SELF ONLY. SHE HAS POOR INSIGHT INTO HER SITUATION. SHE IS UNSTEADY ON HER FEET AND USING A WHEELCHAIR TO ASSIST WITH AMBULATION. SHE IS INTRUSIVE WITH OTHER PTS CARE. I.) PROVIDED PM MEDICATIONS PRESCRIBED. REDIRECT OFTEN. R.) COMPLIANT WITH ALL MEDICATION. EASY TO REDIRECT. P.) WILL CONTINUE TO MONITOR.
--- NOTE | 2019-09-03 07:59 | NUR ---
The patient is awake and she is pleasant this am she has not shown any aggression, she is in a w/c and self propels a short distance. She can stand and transfer with assist, she is incontinent at times, but other times she lets staff know if she needs to void. She speaks in word salad at times and clear at other times. She has poor insight into her situation. Provide prescribed meds. Continue POC
[2019-09-03 08:54] VITALS: BP 102/62
--- NOTE | 2019-09-03 19:14 | NUR ---
RECEIVED IN DAYROOM, MOVING ABOUT IN WHEELCHAIR. RESTLESS AT TIMES. AGITATED WITH A PEER AT TIMES. COOPERATIVE WITH CARE AND ASSESSMENT. REDIRECT AND REORIENT NEEDED. CONTINUES TO MOVE ABOUT IN DAYROOM. AGITATED AT TIMES. CONTINUE PLAN OF CARE.
[2019-09-03 20:00] VITALS: BP 124/58
[2019-09-04 08:29] VITALS: BP 134/55
--- NOTE | 2019-09-04 12:00 | NUR ---
RECEIVED IN HALLWAY OUTSIDE OF NURSES STATION. CALM AND COOPERATIVE WITH CARE AND ASSESSMENT. NO AGGRESSIVE BEHAVIOR. REDIRECT AND REORIENT NEEDED. EATING LUNCH AT THIS TIME. CONTINUE PLAN OF CARE.
--- NOTE | 2019-09-04 14:02 | PN ---
PATIENT:ALMA LAFLEUR MEDICAL RECORD: [id number] LOCATION:[facility] ADMISSION DATE: 08/14/19 PROGRESS NOTE DATE OF SERVICE: 08/31/2019 SUBJECTIVE: The patient's case was discussed with staff. She has no new complaint. OBJECTIVE: The patient is intermittently sedated or agitated. She is eating minimally well and sleeping adequately. Last night, she became agitated around bedtime. ASSESSMENT: Dementia. PLAN: I am going to try a low dose of Klonopin about 5:00 p.m. to see if this helps with the sundowning behavior. She will be monitored for clinical changes associated with this. TRANSINT:[id number] Voice Confirmation ID: [id number] DOCUMENT ID: [id number] VI LEAVITT MD at 1402 CC: [id number] DICTATION DATE: 08/31/19 1546 FERRYBOAT OPERATOR CABLE: 08/31/19 1625 ADM IN [place] [place] [address]
--- NOTE | 2019-09-04 19:56 | NUR ---
RECEIVED IN DAYROOM. MOVING ABOUT IN A WHEELCHAIR. CALM AND COOPERATIVE WITH CARE AND ASSESSMENT. NO SIGNS OF AGITATION AT THIS TIME. REDIRECT AND REORIENT NEEDED. CONTINUES TO SIT CALMLY AT THIS TIME. CONTINUE PLAN OF CARE.
[2019-09-04 20:11] VITALS: BP 128/66
[2019-09-05 08:47] VITALS: BP 119/73
--- NOTE | 2019-09-05 08:56 | NUR ---
RECEIVED IN HALLWAY OUTSIDE OF NURSES STATION. CALM AND COOPERATIVE WITH CARE AND ASSESSMENT. PLEASANTLY CONFUSED. NO AGGRESSION. REDIRECT AND REORIENT NEEDED. EATING BREAKFAST AT THIS TIME. CONTINUE PLAN OF CARE.
--- NOTE | 2019-09-05 15:01 | PN ---
PATIENT:ALMA LAFLEUR MEDICAL RECORD: [id number] LOCATION:[facility] [place] ADMISSION DATE: 08/14/19 PROGRESS NOTE DATE OF SERVICE: 09/04/2019 SUBJECTIVE: The patient's case was discussed with staff. She has no new complaint. OBJECTIVE: The patient slept 8 hours yesterday and ate more than half of what was presented to her yesterday. She has been a little restless and had some agitation, but nothing that has risen to the level of requiring p.r.n. medications. ASSESSMENT: Dementia. PLAN: The patient will be maintained on current medications. I am going to reduce the dose of the Klonopin slightly. She will be monitored for clinical changes associated with its use. TRANSINT:[id number] Voice Confirmation ID: [id number] DOCUMENT ID: [id number] VI LEAVITT MD at 1501 CC: [id number] DICTATION DATE: 09/04/19 1643 CANNERY TENDER ENGINEER: 09/04/19 1711 [place] [address]
[2019-09-05] MEDS ORDERED: ZOVIRAX200 MG PO (16:34)
[2019-09-05] MEDS ORDERED: GEODON20 MG PO (16:35)
[2019-09-05] MEDS ORDERED: DESERYL PO (16:35)
[2019-09-05] MEDS ORDERED: VITAMIN D PO (16:36)
[2019-09-05] MEDS ORDERED: Megace ES [CHEMO] PO (16:36)
[2019-09-05] MEDS ORDERED: NAMENDA5 MG PO (16:36)
[2019-09-05] MEDS ORDERED: Senokot TAB PO (16:36)
[2019-09-05] MEDS ORDERED: OSCAL D TABLET PO (16:36)
--- NOTE | 2019-09-05 19:27 | NUR ---
RECEIVED IN DAYROOM. SITTING IN A WHEELCHAIR WITH PEERS AT HER SIDE. CALM AND COOPERATIVE WITH CARE AND ASSESSMENT. NO SIGNS OF AGGRESSION. REDIRECT AND REORIENT NEEDED. CONTINUES TO SIT CALMLY IN DAYROOM. CONTINUE PLAN OF CARE.
[2019-09-05 20:22] VITALS: BP 133/75
[2019-09-06 09:10] VITALS: BP 118/57
--- NOTE | 2019-09-06 11:46 | PN ---
PATIENT:ALMA LAFLEUR MEDICAL RECORD: [id number] LOCATION:[facility] ADMISSION DATE: 08/14/19 PROGRESS NOTE DATE OF SERVICE: 09/05/2019 SUBJECTIVE: The patient's case was discussed with staff. She has no new complaint. OBJECTIVE: The patient denies intent to harm herself or others. She is significantly impaired. ASSESSMENT: Dementia. PLAN: The patient's behaviors have improved. She is sleeping and eating well. The level of agitation is much better and she has not been aggressive for a long time. At this point, I am going to transition her out of the hospital and back to the assisted living center tomorrow. TRANSINT:[id number] Voice Confirmation ID: [id number] DOCUMENT ID: [id number] VI LEAVITT MD at 1146 CC: [id number] DICTATION DATE: 09/05/19 1631 CARBON ACCOUNTANT: 09/05/19 2209 ADM IN [facility] [address] [place] [address]
--- NOTE | 2019-09-06 13:30 | NUR ---
PATIENT DISCHARGED TO THE [facility]. PAPERWORK FAXED TO THE [facility] AND HARD COPY SENT WITH PATIENT. PERSONAL BELONGINGS SENT WITH PATIENT. MEDICATIONS CALLED IN TO [facility].
--- NOTE | 2019-09-07 15:37 | PN ---
PATIENT:ALMA LAFLEUR MEDICAL RECORD: [id number] LOCATION:[facility] [place] ADMISSION DATE: 08/14/19 PROGRESS NOTE DATE OF SERVICE: 09/06/2019 SUBJECTIVE: The patient's case was discussed with staff. She has no new complaint. OBJECTIVE: The patient is in good behavioral control and shows no evidence of acute or direct dangerousness. ASSESSMENT: Dementia. PLAN: The patient's current medicines have been reviewed. She will be transitioned out of the hospital today. TRANSINT:[id number] Voice Confirmation ID: [id number] DOCUMENT ID: [id number] VI LEAVITT MD at 1537 CC: [id number] DICTATION DATE: 09/06/19 1150 ART DISPLAY MAKER: 09/06/19 1227 DIS IN 09/06/19 [facility] [address] [place] [address]
== END 2019-09-06 13:15 | disposition home or self-care (01) | DRG 57 ==
LOC: D.PSYCH 09:48
PROVIDERS: ADMIT Psychiatry & Neurology Psychiatry; ATTEND Psychiatry & Neurology Psychiatry
DX: G30.9 Alzheimer's disease, unspecified (principal); F02.81 Dementia in other diseases classified elsewhere, unspecified severity, with behavioral disturbance; Z68.1 Body mass index [BMI] 19.9 or less, adult; K21.9 Gastro-esophageal reflux disease without esophagitis; E55.9 Vitamin D deficiency, unspecified; E83.51 Hypocalcemia; F41.8 Other specified anxiety disorders; E53.8 Deficiency of other specified B group vitamins; R63.0 Anorexia; B00.9 Herpesviral infection, unspecified

== ENCOUNTER 2019-09-22 18:02 | Inpatient (IN) | payer MEDICARE, OTHER ==
[~2019-09-22 18:02] MED LIST changes: +GEODON20 MG PO; +NAMENDA5 MG PO; +OSCAL D TABLET PO; +Senokot TAB PO; +ZOVIRAX200 MG PO
[2019-09-22 21:18] VITALS: BP 145/61; BMI 18.2
--- NOTE | 2019-09-22 22:58 | NUR ---
PATIENTED ADMITTED TO ROOM 1128 FROM [facility] FOR AGGRESSION TO STAFF AND RESIDENTS, THIS PATIENT HAS BEEN HERE MULTIPLE TIMES, SHE IS AGGRESSIVE, CONFUSED, HARD TO DIRECT AND REDIRECT. SHE WAS ORIENTED TO UNIT, ROOM AND CALL BARRETT. CODE NUMBER IS 9. WILL MONITOR PATIENT FOR SAFETY
[2019-09-23 07:45] VITALS: BP 125/58
[2019-09-23 07:47] LABS: HEMATOCRIT 40.1 % (36.0-48.0); MCH 29.3 pg (26.0-34.0); MCHC 32.4 g/dL (31.0-37.0); MCV 90.3 fL (80.0-100.0); MEAN PLATELET VOLUME 11.9 fL (7.4-10.4); RBC 4.44 10x6/uL (4.00-5.40); RDW 13.7 % (11.5-14.5); WBC 6.1 10x3/uL (4.8-10.8)
[2019-09-23 07:51] LABS: PLATELET COUNT 180 10x3/uL (130-400)
[2019-09-23 08:06] LABS: EOSINOPHILS 1 % (0-7); LYMPHOCYTES 42 % (15-50); MONOCYTES 5 % (2-11); NEUTROPHILS 52 % (40-80)
[2019-09-23 08:07] LABS: PLATELET ESTIMATE NORMAL
[2019-09-23 08:31] LABS: ALBUMIN 3.4 g/dL (3.4-5.0); ALKALINE PHOSPHATASE 75 U/L (30-120); ALT (SGPT) 23 U/L (10-68); BILIRUBIN - TOTAL 0.69 mg/dL (0.2-1.3); CALC OSMOLALITY 281 mosm/kg (275-300); CALCIUM 8.4 mg/dL (8.5-10.1); CARBON DIOXIDE 26.6 mmol/L (21.0-32.0); CHLORIDE - SERUM 105 mmol/L (98-107); CHOL - HDL RATIO 3.3 ratio (2.3-4.1); CHOLESTEROL, TOTAL 186 mg/dL (0-200); CREATININE - SERUM 0.7 mg/dL (0.6-1.3); GLUCOSE 91 mg/dL (74-106); HDL CHOLESTEROL 57 mg/dL (32-96); LDL CHOLESTEROL 113 mg/dL (0-100); POTASSIUM - SERUM 3.9 mmol/L (3.5-5.1); PROTEIN - SERUM 6.6 g/dL (6.4-8.2); SODIUM 141 mmol/L (136-145); THYROID STIMULATING HORMONE 1.65 uIU/mL (0.36-3.74); TRIGLYCERIDE 80 mg/dL (30-200); UREA NITROGEN 14 mg/dL (7-18); eGFR NON AFRICAN AMERICAN 86 mL/min (90-120)
[2019-09-23 09:33] VITALS: Wt 53.8 kg
--- NOTE | 2019-09-23 11:25 | NUR ---
The patient was very sleepy this am, but she has awakened now and she says she needs her whiskers off and she needs makeup. She is not being aggressive at this time. She is ambulating with staff by her side. Provide prescribed meds. The patient's daughter called and asked how she is doing. Continue POC.
--- NOTE | 2019-09-23 12:55 | NUR ---
Offered the patient to shave her whiskers, she said "No, I'll do it myself."
[2019-09-23 19:32] VITALS: BP 149/81
--- NOTE | 2019-09-24 00:10 | NUR ---
B)RECEIVED PATIENT SITTING IN THE DAYROOM. CONFUSED AND DISORIENTED. SITS BY A MALE PEER AND CALLS HIM DADDY. INTRUSSIVE WILL WALK FROM PATIENT TO PATIENT. ATTEMPTS TO INTERACT HOWEVER IS NOT ABLE TO FOLLOW TOPIC OF CONVERSATION. I)ADMINISTER MEDS AND MONITOR COMPLIANCE. REORIENT NEEDED. R)MED COMPLIANT. POOR REORIENTATION DUE TO IMPAIRED ABILITY TO COMPREHEND, PROCESS AND RETAIN INFORMATION. P)CONTINUE POC AND PROVIDE SAFE ENVIRONMENT.
[2019-09-24 08:31] VITALS: BP 93/57
--- NOTE | 2019-09-24 12:00 | NUR ---
RECEIVED IN HALLWAY OUTSIDE OF NURSES STATION. CALM AND COOPERATIVE WITH CARE AND ASSESSMENT. VERY CONFUSED. WANDERS AROUND. NO AGGRESSION. REDIRECT AND REORIENT NEEDED. EATING LUNCH AT THIS TIME. CONTINUE PLAN OF CARE.
--- NOTE | 2019-09-24 19:23 | NUR ---
RECEIVED IN DAYROOM. SITTING IN A RECLINER WITH PEERS AT HER SIDE. SOCIAL WITH STAFF. CALM AND COOPERATIVE WITH CARE AND ASSESSMENT. NO SIGNS OF AGGRESSION. REDIRECT AND REORIENT NEEDED. CONTINUES TO SIT CALMLY IN DAYROOM. CONTINUE PLAN OF CARE.
[2019-09-24 19:28] VITALS: BP 139/48
[2019-09-25 08:43] VITALS: BP 90/54
--- NOTE | 2019-09-25 12:00 | NUR ---
RECEIVED IN HALLWAY OUTSIDE OF NURSES STATION. CALM AND COOPERATIVE WITH CARE AND ASSESSMENT. NO AGGRESSION. REDIRECT AND REORIENT NEEDED. EATING LUNCH AT THIS TIME. CONTINUE PLAN OF CARE.
[2019-09-25 19:22] VITALS: BP 134/46
--- NOTE | 2019-09-25 19:45 | NUR ---
RECEIVED IN DAYROOM. WALKING ABOUT SOCAILIZING WITH PEERS. CALM AND COOPERATIVE BUT VERY CONFUSED. NO SIGNS OF AGGRESSION. REDIRECT AND REORIENT NEEDED. CONTINUES TO WALK ABOUT IN DAYROOM. CONTINUE PLAN OF CARE.
[2019-09-26 07:12] LABS: RAPID PLASMA REAGIN Non Reactive (Non Reactive)
[2019-09-26 07:47] VITALS: BP 106/52
--- NOTE | 2019-09-26 08:30 | NUR ---
RECEIVED IN HALLWAY OUTSIDE OF NURSES STATION. CALM AND COOPERATIVE WITH CARE AND ASSESSMENT. NO AGGRESSION. VERY CONFUSED. REDIRECT AND REORIENT NEEDED. EATING BREAKFAST AT THIS TIME. CONTINUE PLAN OF CARE.
--- NOTE | 2019-09-26 11:32 | PN ---
PATIENT:ALMA LAFLEUR MEDICAL RECORD: [id number] LOCATION:[facility] [place] ADMISSION DATE: 09/22/19 PROGRESS NOTE DATE OF SERVICE: 09/25/2019 SUBJECTIVE: The patient's case was discussed with staff. She has no new complaint. OBJECTIVE: The patient denies intent to harm herself or others. She is tolerating her medicines well. She is very impaired cognitively. ASSESSMENT: Dementia. PLAN: Apparently, the assisted living center took the patient off some of her medicines that she was discharged on previously. She is going to need these medicines to not have behavior outbursts and actually even with the medicine she is still going to have occasional behavior issues. I will discuss the situation with the treatment team. It may be necessary that a more restrictive environment be sought for the patient. TRANSINT:[id number] Voice Confirmation ID: [id number] DOCUMENT ID: [id number] VI LEAVITT MD at 1132 CC: [id number] DICTATION DATE: 09/25/19 1522 PLANT ENGINEERING SUPERVISOR: 09/25/191955 ADM IN [facility] [address] [place] [address]
--- NOTE | 2019-09-26 13:44 | NUR ---
Nutrition Follow-up: PO intake seems to have improved since admit. Noted Megace started 09/23. Diet: Regular PO intake: 55% avg x 9 meals; 75% avg x last 6 meals (09/23-09/24) Wt: 112# (09/23) - BMI 17.5; 116# (09/21) Last BM: 09/22 No new labs Meds noted: Protonix, Senokot, Megace, vitamin B12, Oscal D -Encourage PO intake and honor food preferences. -+Ensure with meals. -Monitor wt. -RD following.
[2019-09-26 19:43] VITALS: BP 145/61
--- NOTE | 2019-09-26 19:47 | NUR ---
RECEIVED IN DAYROOM. WALKING ABOUT SOCIALIZING WITH STAFF AND PEERS. CALM AND COOPERATIVE WITH CARE AND ASSESSMENT. NO SIGNS OF AGGRESSION. REDIRECT AND REORIENT NEEDED. CONTINUES TO WALK ABOUT IN DAYROOM. CONTINUE PLAN OF CARE.
[2019-09-27 08:15] VITALS: BP 133/41
--- NOTE | 2019-09-27 09:28 | NUR ---
SPOKE WITH PTS DAUGHTER MONY ABOUT HOW SHE WAS DOING AND HOW HER NIGHT WENT. PT SLEPT 9 HOURS. THEY INQURIED IF SHE RECEIVED A PRN NURSE STATED SHE DID NOT. SHE HAD A GOOD NIGHT AND NO BEHAVIORS REPORTED. SHE THANKED NURSE AND TOLD US SHE WOULD LET HER DAD KNOW.
--- NOTE | 2019-09-27 10:17 | PN ---
PATIENT:ALMA LAFLEUR MEDICAL RECORD: [id number] LOCATION:[facility] ADMISSION DATE: 09/22/19 PROGRESS NOTE DATE OF SERVICE: 09/26/2019 SUBJECTIVE: The patient's case was discussed with staff. She has no new complaint. OBJECTIVE: The patient is extremely impaired, cognitively very disorganized and has almost no short-term memory. She is only oriented to person. She is also pleasant, cooperative and has not been aggressive. She has been restarted on the medicines that she was discharged on, the very medicines that she was taken off of prior to this hospitalization. ASSESSMENT: Dementia. PLAN: The patient will be transitioned back to a facility that will not stop her medications and her long-term prognosis will be much improved by not having the medications stopped. TRANSINT:[id number] Voice Confirmation ID: [id number] DOCUMENT ID: [id number] VI LEAVITT MD at 1017 CC: [id number] DICTATION DATE: 09/26/19 1229 ROPE TIER: 09/26/19 1837 ADM IN [facility] [address] [id number]
--- NOTE | 2019-09-27 10:51 | NUR ---
The patient is awake and alert. She is oriented to self only. She ambulates independently. She is getting a little irritated with another patient as he is yelling and it is bothering her. She tried to hit his hand. Staff redirected her. She is eating an ice cream at this time. Provide prescribed meds. The patient is compliant with meds. Continue POC.
[2019-09-27 20:30] VITALS: BP 120/47
--- NOTE | 2019-09-27 21:23 | NUR ---
PATIENT IS VERY CONFUSED, NO INSIGHT AT ALL, GETS MAD QUICKLY, HARD TO GET HER TO TAKE MEDS, WILL FOLLOW POC
[2019-09-28 08:16] VITALS: BP 111/54
--- NOTE | 2019-09-28 08:27 | PN ---
PATIENT:ALMA LAFLEUR MEDICAL RECORD: [id number] LOCATION:[facility] ADMISSION DATE: 09/22/19 PROGRESS NOTE DATE OF SERVICE: 09/27/2019 SUBJECTIVE: The patient's case was discussed with staff. She has no new complaint. OBJECTIVE: The patient is calm and cooperative. She denies that she would seek to harm herself or others. She is interacting with staff well. ASSESSMENT: Dementia. PLAN: The patient will have current medications maintained. However, I am going to reduce the dose of the Klonopin slightly. She will be monitored for clinical changes associated with that. I am wanting her to go to a behavioral correction with more supervision. I will discuss this with the treatment team again. I know there has been some pushback or resistance on this, but this is her third hospitalization and it is all related to not enough supervision at the facility or the facility taking her off the medication she is discharged from here taking. This is unnecessary, it is not in the patient's best interest. TRANSINT:[id number] Voice Confirmation ID: [id number] DOCUMENT ID: [id number] VI LEAVITT MD at 0827 CC: [id number] DICTATION DATE: 09/27/19 1452 PRIVATE BRANCH EXCHANGE SERVICE ADVISOR: 09/27/19 1707 ADM IN [id number] [place] [address]
[2019-09-28 08:59] VITALS: BP 111/54
--- NOTE | 2019-09-28 11:07 | NUR ---
The patient is pleasant, her daughter called and asked how she is doing. She would also like to speak to Curtis Linares. The patient is calm, she is not showing any aggression today. Provide prescribed meds. The patient is compliant with meds. Continue POC.
[2019-09-28 20:25] VITALS: BP 137/65
--- NOTE | 2019-09-28 22:34 | NUR ---
B)RECEIVED PATIENT IN THE BATHROOM. CONFUSED AND DISORIENTED. WANDERS FROM ROOM TO ROOM. PICKS THINGS UP THAT DOES NOT BELONG TO HER. MORE REDIRECTABLE. I)ADMINISTER MEDS AND MONITOR COMPLIANCE. REORIENT NEEDED. R)MED COMPLIANT. POOR REORIENTATION DUE TO IMPAIRED ABILITY TO COMPREHEND, PROCESS AND RETAIN INFORMATION. P)CONTINUE POC AND PROVIDE SAFE ENVIRONMENT.
--- NOTE | 2019-09-29 08:32 | NUR ---
The patient is awake and she is sitting up. She is pleasant and she is calm. She has not shown any aggression today. She is cooperative. Provide prescribed meds. The patient is compliant with meds. She wanders around and she is confused. She is very inedpendent and does not like to be directed. She'll say "I know how to do it." Continue POC.
[2019-09-29 09:39] VITALS: BP 125/50
--- NOTE | 2019-09-29 13:35 | NUR ---
Nutrition Follow-up: Overall fair PO intake. Ate 25-100% of her meals yesterday. Diet: Regular, Ensure TID PO intake: 63% avg x 9 meals Last BM: 09/26 No new labs Meds noted: Protonix, Senokot, Megace, vitamin B12, Oscal D -Encourage PO intake and honor food preferences. -Monitor wt. -RD following.
[2019-09-29 20:23] VITALS: BP 122/54
--- NOTE | 2019-09-29 21:40 | NUR ---
B.) PT IS ALERT AND ORIENTED TO SELF ONLY. SHE IS ABLE TO AMBULATE ON HER OWN WITHOUT ASSIST. SHE IS INTRUSIVE WITH OTHER PT CARE. SHE IS DEMANDING AT TIMES. I.) PROVIDED PM MEDICATIONS. REDIRECT OFTEN. R.) COMPLIANT WITH ALL MEDICATIONS. DIFFICULT TO REDIRECT AT TIMES. P.) WILL CONTINUE TO MONITOR.
[2019-09-30 08:17] VITALS: BP 103/55
--- NOTE | 2019-09-30 12:56 | NUR ---
The patient is awake and alert, she is pleasant. She is making jokes today with staff. Staff told her she had beautiful hair and that she is beautiful. She said "What are you trying to get out of me?" She is being funny today. She has not shown any aggression today. Provide prescribed meds. The patient is compliant with meds. Continue POC.
[2019-09-30 20:11] VITALS: BP 136/62
--- NOTE | 2019-09-30 21:10 | NUR ---
B.) PT IS ALERT AND ORIENTED TO SELF ONLY. SHE HAS POOR INSIGHT INTO HER SITUATION. SHE IS ABLE TO VOICE HER OWN NEEDS AND AMBULATE ON HER OWN WITHOUT ASSIST. NO AGGRESSION NOTED THIS SHIFT. SHE IS CALM, COOPERATIVE AND SOCIALLY INTERACTING WITH STAFF. I.) PROVIDED PM MEDICATIONS. REDIRECT OFTEN. R.) COMPLIANT WITH ALL MEDICATIONS. EASY TO REDIRECT. P.) WILL CONTINUE TO MONITOR.
[2019-10-01 07:41] VITALS: BP 117/59
--- NOTE | 2019-10-01 11:35 | NUR ---
The patient is awake and alert. She has poor insight into her situation. She has poor short term memory and she is sometimes speaks appropriately at other times she uses word salad as she is unable to get the correct words out. She has not shown any aggression today. Her daughter Citlali called and asked about her well being. Provide prescribed meds. The patient is compliant with meds. Continue POC.
--- NOTE | 2019-10-01 19:12 | NUR ---
RECEIVED IN DAYROOM. WALKING ABOUT SOCIALING WITH STAFF AND PEERS. CALM AND COOPERATIVE WITH CARE AND ASSESSMENT. NO SIGNS OF AGGRESSION. REDIRECT AND REORIENT NEEDED. CONTINUES TO SIT CALMLY IN DAYROOM. CONTINUE PLAN OF CARE.
[2019-10-01 20:00] VITALS: BP 145/47
[2019-10-02 08:05] VITALS: BP 140/54
--- NOTE | 2019-10-02 12:00 | NUR ---
RECEIVED IN HALLWAY OUTSIDE OF NURSES STATION. CALM AND COOPERATIVE WITH CARE AND ASSESSMENT. VERY CONFUSED. AGGRESSIVE WITH STAFF TODAY. REDIRECT AND REORIENT NEEDED. EATING AT THIS TIME. CONTINUE PLAN OF CARE.
--- NOTE | 2019-10-02 13:22 | PN ---
PATIENT:ALMA LAFLEUR MEDICAL RECORD: [id number] LOCATION:[facility] ADMISSION DATE: 09/22/19 PROGRESS NOTE DATE OF SERVICE: 09/28/2019 SUBJECTIVE: The patient's case was discussed with staff. She has no new complaint. OBJECTIVE: The patient denies intent to harm herself or others. She is participating in treatment. She is very impaired cognitively. ASSESSMENT: Dementia. PLAN: Current medicines have been reviewed and will be maintained. Long-term prognosis is guarded. TRANSINT:[id number] Voice Confirmation ID: [id number] DOCUMENT ID: [id number] VI LEAVITT MD at 1322 CC: [id number] DICTATION DATE: 09/28/19 1550 WANIGAN CLERK: 09/28/19 1752 ADM IN [id number] [place] [address]
[2019-10-02 20:51] VITALS: BP 129/48
--- NOTE | 2019-10-02 21:04 | NUR ---
RECEIVED IN DAYROOM. WALKING ABOUT SOCIALIZING WITH STAFF AND PEERS. COMBATIVE WITH REDIRECTION AT TIMES. REDIRECT AND REORIENT NEEDED. IN SHOWER ROOM WITH MHT AT THIS TIME. CONTINUE PLAN OF CARE.
[2019-10-03 08:41] VITALS: BP 125/57
--- NOTE | 2019-10-03 09:38 | PN ---
PATIENT:ALMA LAFLEUR MEDICAL RECORD: [id number] LOCATION:[facility] ADMISSION DATE: 09/22/19 PROGRESS NOTE DATE OF SERVICE: 10/02/2019 SUBJECTIVE: The patient's case was discussed with staff. She has no new complaint. OBJECTIVE: The patient denies intent to harm herself or others. She is tolerating her medicines well. She has limited insight about her situation. ASSESSMENT: Senile dementia of the Alzheimer's type with behavioral disturbances. PLAN: The patient's Klonopin is going to be titrated down further. Her long-term prognosis is guarded. TRANSINT:[id number] Voice Confirmation ID: [id number] DOCUMENT ID: [id number] VI LEAVITT MD at 0938 CC: [id number] DICTATION DATE: 10/02/19 1544 OWNER: 10/02/19 1600 ADM IN [facility] [address] [place] [address]
--- NOTE | 2019-10-03 12:00 | NUR ---
RECEIVED IN HALLWAY OUTSIDE OF NURSES STATION. CALM AND COOPERATIVE WITH CARE AND ASSESSMENT. AGITATED AT TIMES. BECOMES AGGRESSIVE WITH REDIRECTION AT TIMES. REDIRECT AND REORIENT NEEDED. EATING LUNCH AT THIS TIME. CONTINUE PLAN OF CARE.
--- NOTE | 2019-10-03 19:30 | NUR ---
RECEIVED IN DAYROOM. SITTING IN A CHAIR WITH PEERS AT HER SIDE. CALM AND COOPERATIVE WITH CARE NAD ASSESSMENT. NO SIGNS OF AGGRESSION. REDIRECT AND REORIENT NEEDED. CONTINUES TO SIT CALMLY IN DAYROOM. CONTINUE PLAN OF CARE.
[2019-10-03 20:24] VITALS: BP 116/41
[2019-10-04 08:00] VITALS: BP 101/45
--- NOTE | 2019-10-04 12:00 | NUR ---
RECEIVED IN HALLWAY OUTSIDE OF NURSES STATION. CALM AND COOPERATIVE WITH CARE AND ASSESSMENT. NO AGGRESSION TODAY. REDIRECT AND REORIENT NEEDED. EATING LUNCH AT THIS TIME. CONTINUE PLAN OF CARE.
--- NOTE | 2019-10-04 12:53 | PN ---
PATIENT:ALMA LAFLEUR MEDICAL RECORD: [id number] LOCATION:[facility] ADMISSION DATE: 09/22/19 PROGRESS NOTE DATE OF SERVICE: 10/03/2019 SUBJECTIVE: The patient's case was discussed with staff. She has no new complaint. OBJECTIVE: The patient is in good behavioral control with limited insight about her situation. She does tolerate her medications reasonably well. She was aggressive and agitated with staff last night. ASSESSMENT: Dementia. PLAN: This patient is not appropriate for the [facility] or any other assisted living facility. She requires a behavioral unit preferably or at a minimal locked dementia unit. I believe I have done everything I can reasonably do with her pharmacologically and it is just simply going to have to be accepted that on occasion she is going to have behavior outbursts. Additional pharmacologic management runs the risk of the side effects of medicine outweighing the potential benefits and I think that this is the best balance that I can achieve without causing excessive sedation. The next step will be to find her an appropriate living situation and [facility] does not [facility] the [facility], which could not provide sufficient supervision, structure, or even tolerance of her behaviors. TRANSINT:[id number] Voice Confirmation ID: [id number] DOCUMENT ID: [id number] VI LEAVITT MD at 1253 CC: [id number] DICTATION DATE: 10/03/19 1238 POWER DIGGER OPERATOR: 10/03/19 1502 ADM IN [facility] [address] [place] [address]
[2019-10-04] MEDS ORDERED: OSCAL D TABLET PO (16:11)
[2019-10-04] MEDS ORDERED: GEODON20 MG PO (16:11)
[2019-10-04] MEDS ORDERED: Senokot TAB PO (16:11)
[2019-10-04] MEDS ORDERED: KLONOPIN0.5 MG PO (16:11)
[2019-10-04] MEDS ORDERED: PROTONIX40 MG PO (16:11)
[2019-10-04 20:06] VITALS: BP 140/40
--- NOTE | 2019-10-04 23:17 | NUR ---
B.) PT IS ALERT AND ORIENTED TO SELF ONLY. SHE IS ABLE TO AMBULATE WITHOUT ASSIST. SHE IS LABILE IN HER MOODS. SHE IS AGGITATED WITH STAFF. SHE IS ARGUMENTATIVE WITH STAFF. I.) PROVIDED PM MEDICATIONS PRESCRIBED. REDIRECT OFTEN. R.) COMPLIANT WITH ALL MEDICATIONS. DIFFICULT TO REDIRECT. P.) WILL CONTINUE TO MONITOR.
--- NOTE | 2019-10-05 09:52 | NUR ---
SPOKE WITH DAUGHTER MONY. GRAHAM GIVEN. WANTED TO SEE HOW HER NIGHT WENT AND HOW SHE WAS DOING THIS MORNING. NURSE EXPLAINED SHE DID NOT WANT TO GET UP THIS MORNING AND SHE WAS COMBAITVE A BIT WITH STAFF. STAFF WAS ABLE TO REDIRECT HER AT THAT TIME TO BREAKFAST. SHE WANTED TO KNOW IF PT WAS DISCHARGING TODAY OR TOMORROW. NURSE LET HER KNOW SHE WOULD BE DISCHARGING TODAY. SHE ASKED IF WE COULD CALL HER MEDS IN TO PHARMACY BEFORE SHE LEAVES. NURSE VERBALIZIED UNDERSTANDING.
--- NOTE | 2019-10-05 10:02 | NUR ---
MEDICATIONS CALLED INTO [facility] FOR DISCHARGE.
[2019-10-05 10:38] VITALS: BP 106/50
--- NOTE | 2019-10-05 12:00 | NUR ---
RECEIVED IN HALLWAY OUTSIDE OF NURSES STATION. AGITATION THIS MORNING. BECAME AGGRESSIVE WITH STAFF AND WAS UNCOOPERATIVE. REDIRECT AND REORIENT NEEDED. EATING AT THIS TIME. CONTINUE PLAN OF CARE.
--- NOTE | 2019-10-05 14:27 | NUR ---
Nutrition Follow-up: PO intake improved. Noted plans to d/c today. Diet: Regular, Ensure TID PO intake: 85% avg x 9 meals WT: 116# (09/30); 112# (09/23); 116# (09/21) Last BM: 10/03 No new labs Meds noted: Protonix, Senokot, Megace, vitamin B12, Oscal D -Encourage PO intake and honor food preferences. -Monitor wt. -RD following.
--- NOTE | 2019-10-05 14:44 | PN ---
PATIENT:ALMA LAFLEUR MEDICAL RECORD: [id number] LOCATION:[facility] ADMISSION DATE: 09/22/19 PROGRESS NOTE DATE OF SERVICE: 10/04/2019 SUBJECTIVE: The patient's case was discussed with staff. She has no new complaint. OBJECTIVE: The patient denies that she would seek to harm herself or others. She is generally tolerating her medicines well. She is severely impaired cognitively. ASSESSMENT: Dementia. PLAN: For reasons that are somewhat complicated, the patient is [facility] There has been an extensive amount of education given to the staff there about how to handle her and this is documented by the public health social worker. She will be transitioned there tomorrow. TRANSINT:[id number] Voice Confirmation ID: [id number] DOCUMENT ID: [id number] VI LEAVITT MD at 1444 CC: [id number] DICTATION DATE: 10/04/19 1610 SPINE SUPERVISOR: 10/04/19 1643 ADM IN [id number] [place] [address]
--- NOTE | 2019-10-05 15:10 | NUR ---
PT DISCHARGED AT THIS WITH STAFF FROM THE [facility]. PT WAS COOPERATIVE WITH [facility]. REPORT CALLED AND PAPERWORK FAXED PRIOR TO DISCHARGE. PAPER COPY SENT WITH PT. PERSONAL ITEMS SENT WITH PT AT THIS TIME. FAMILY NOTIFED OF PT LEAVING AT THIS TIME.
== END 2019-10-05 15:05 | disposition home or self-care (01) | DRG 57 ==
LOC: D.PSYCH 18:02
PROVIDERS: ADMIT Psychiatry & Neurology Psychiatry; ATTEND Psychiatry & Neurology Psychiatry
DX: G30.1 Alzheimer's disease with late onset (principal); F02.81 Dementia in other diseases classified elsewhere, unspecified severity, with behavioral disturbance; F41.8 Other specified anxiety disorders; K21.9 Gastro-esophageal reflux disease without esophagitis; E78.2 Mixed hyperlipidemia; E53.8 Deficiency of other specified B group vitamins; E55.9 Vitamin D deficiency, unspecified; K59.01 Slow transit constipation

== ENCOUNTER 2020-10-24 06:50 | Emergency (ER) | payer MEDICARE, OTHER ==
[~2020-10-24] VITALS: Ht 165.9 cm; Wt 50.0 kg
[~2020-10-24 06:50] MED LIST changes: +PROTONIX40 MG PO
[2020-10-24 06:53] VITALS: Ht 165.9 cm; Wt 50.0 kg
[2020-10-24 10:32] LABS: CALC OSMOLALITY 276 mosm/kg (275-300); CALCIUM 8.7 mg/dL (8.5-10.1); CARBON DIOXIDE 27.3 mmol/L (21.0-32.0); CHLORIDE - SERUM 104 mmol/L (98-107); CREATININE - SERUM 0.5 mg/dL (0.6-1.3); GLUCOSE 96 mg/dL (74-106); POTASSIUM - SERUM 3.8 mmol/L (3.5-5.1); SODIUM 139 mmol/L (136-145); UREA NITROGEN 10 mg/dL (7-18); eGFR NON AFRICAN AMERICAN > 90 mL/min (90-120)
[2020-10-24 10:42] VITALS: BP 142/78
[2020-10-24 10:48] LABS: ALKALINE PHOSPHATASE 133 U/L (30-120); ALT (SGPT) 24 U/L (10-68); MAGNESIUM - SERUM 1.9 mg/dL (1.8-2.4); PROTEIN - SERUM 6.7 g/dL (6.4-8.2); THYROID STIMULATING HORMONE 0.97 uIU/mL (0.36-3.74)
== END 2020-10-24 11:28 | disposition home or self-care (01) ==
LOC: D.ER 06:50
PROVIDERS: Emergency Medicine
DX: S00.83XA Contusion of other part of head, initial encounter (principal); F03.90 Unspecified dementia, unspecified severity, without behavioral disturbance, psychotic disturbance, mood disturbance, and anxiety; W19.XXXA Unspecified fall, initial encounter; Y93.9 Activity, unspecified; Y92.9 Unspecified place or not applicable; E78.5 Hyperlipidemia, unspecified; K21.9 Gastro-esophageal reflux disease without esophagitis